=== PATIENT | female | born 1955 | race Caucasian/White ===

== ENCOUNTER 2024-07-04 11:56 | Outpatient (AMB) | payer MEDICARE, SELFPAY ==
--- NOTE | 2024-07-04 12:04 | HO.NEPHOV ---
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 She has history of liver cirrhosis with ascites and hepatic encephalopathy as well as alcoholic pancreatitis in the past. She is on amlodipine, lisinopril, hydrochlorothiazide as well as clonidine. She denies taking excessive sodium in the diet. Her serum potassium and renal function are normal. She has COPD and continues to be smoking. She has been having lower extremity swelling ever since she has been started on amlodipine. Her serum albumin has been close to normal. She denies any orthostatic symptoms. She has never been on nadalol. She claims to be compliant with medications and avoids any excessive nonsteroidal anti-inflammatories. 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 [facility] Medical History (Updated 07/04/24 @ 14:51 by Indra Robertson MD) Vitamin D deficiency Varicose vein of leg Urinary incontinence, urge Rheumatoid factor positive Portal hypertension Obesity (BMI 30-39.9) Migraine without status migrainosus, not intractable Lung nodule, multiple Insomnia Hypothyroidism Hypertension Hepatic encephalopathy Diverticulosis COPD (chronic obstructive pulmonary disease) with chronic bronchitis Cirrhosis of liver with ascites Chronic midline low back pain without sciatica Chronic cholecystitis with calculus Anxiety disorder Alcoholic pancreatitis Acid reflux Surgical History H/O wisdom tooth extraction H/O endoscopy H/O shoulder surgery H/O colonoscopy H/O section Family History Mother Colon cancer Father Hypertension Social History (Updated 07/04/24 @ 12:05 by Loren Appiah MA) Alcohol intake: former Patient Tobacco Use Status: Current everyday Tobacco user Review of Systems Const All systems reviewed & are unremarkable except as noted in HPI and below Physical Exam Vital Signs: Last Vital Signs Pulse 80 07/04/24 12:10 BP 102/68 07/04/24 12:10 Pulse Ox 97 07/04/24 12:10 Oxygen Delivery Method Room Air 07/04/24 12:10 BMI result Body Mass Index 31.5 Const General: comfortable and no acute distress Orientation/consciousness: patient oriented x3 HEENT Head: Yes normocephalic Mouth: Normal oral and palatal mucosa present Eyes EOM: EOMs intact bilaterally Neck Neck: Yes supple Resp Auscultation: clear to auscultation bilaterally Cardio Jugular venous distension: no JVD Rate: regular rate GI Palpation (GI): Soft to palpation Auscultation: normal bowel sounds Skin General skin exam: no rashes or lesions noted Neuro General: patient oriented x3 and moves all extremities Extrem General: Yes no pedal edema Results Reviewed Nephrology Results: No Data to Display Assessment & Plan Assessment & Plan (1) Hypertension: Code(s): I10 - Essential (primary) hypertension Category: Medical Qualifiers: Hypertension type: primary hypertension Qualified Code(s): I10 - Essential (primary) hypertension (2) Edema: Code(s): R60.9 - Edema, unspecified Category: Medical Qualifiers: Edema type: unspecified Qualified Code(s): R60.9 - Edema, unspecified Plan Valerie has longstanding hypertension. Her antihypertensive medication has been adjusted but continues to have high blood pressure. She has edema ever since she has been started on amlodipine. Her last serum albumin was 3.9. She is on lisinopril, hydrochlorothiazide as well as clonidine. Discontinued her amlodipine and initiated her on low-dose spironolactone given history of liver issues. She was told to check her potassium given she is already taking NANCY-inhibitor(ordered). She had a venous duplex which has ruled out DVT. I plan to cut back and wean her off clonidine if at all possible. Her renal functions are normal. She should maintain low-sodium diet and quit smoking. She has never taken Nadalol and there is no documentation to support she has high portal pressure. Further optimization of her medication regiment will be based on evolving data. Answered all questions Orders: Orders Creatinine 3 Weeks I10 - Essential (primary) hypertension Electrolytes 3 Weeks I10 - Essential (primary) hypertension Blood Urea Nitrogen 3 Weeks I10 - Essential (primary) hypertension Medications: New spironolactone 12.5 mg (1/2 x 25 mg) PO DAILY 30 days 15 tabs 3RF Coding Level of Care Code New Pt Level 4 (46803) Diagnoses Primary hypertension I10 Hypertension type: primary hypertension Edema, unspecified type R60.9 Edema type: unspecified
[2024-07-04 12:10] VITALS: BP 102/68; PULSE 80; O2SAT 97; BMI 31.5
--- OUTSIDE RECORDS SUMMARY | 2024-07-04 13:14 | XMS_ITS | Encounter Summary ---
Author Organization [facility] Address [address] [place] [address] Care Team Providers Care Leadership Development Consultant Name Role Phone Betty Burnett MD Primary Care Provider [phone] Reason for Visit * Reason Onset Date Comments Lex: Call Back 07/02/2024 Encounter Details Date Type Department Care Team ([facility] st Contact Info) Description 07/02/2024 Telephone Internal Medicine - [place] [address] [place] [address] Betty Burnett MD [address] [place] [address] Lex: Call Back Social History Tobacco Use Types Packs/Day Years Used Date Smoking Tobacco: Every Day Cigarettes 0.8 54.6 Started: 1970 Smokeless Tobacco: Never Alcohol Use Standard Drinks/Week Comments No 0 (1 standard drink = 0.6 oz pur e alcohol) Comments No Sex and Gender Information Value Date Recorded Sex Assigned at Female 05/08/2024 2:24 PM EST Legal Sex Female 10:33 PM EST Gender Identity Female 05/08/2024 2:24 PM EST Sexual Orientation Choose not to disclose 2024 2:24 PM EST documented as of this encounter Progress Notes * Sneha Oleary RN - 07/03/2024 8:46 AM EDT She could have swelling of the leg from cirrhosis of the liver or heart failure. need to follow-upwith GI and cardiology. Referral has been placed Call to pt # [phone], spoke w/ her. Informed of message from Dr. Varner She has an appt with cardiology 07/19 She will call her GI She already has her next f/u appt with us on 08/[address] Varner * Sneha Oleary RN - 07/02/2024 4:[address] Varner please advise Pt seen for this issue on 06/[address] Varner. Was DVT neg. Pt looking for next steps, is still having swelling. Patient called and requested a call back with next steps on what she should do because she went [facility] to check for blood clots but she does not and her leg is still swollen and she would like to know what to do now. * Candie Marcus - 07/02/2024 1:37 PM EDT Patient called and requested a call back with next steps on what she should do because she went to the hospital to check for blood clots but she does not and her leg is still swollen and she would like to know what to do now. Please advise Cb# [phone] documented in this encounter Plan of Treatment Upcoming Encounters Date Type Department Care Team (Late st Contact Info) Description 07/19/2024 11:00 AM EDT Ancillary Procedure [facility] - [facility] [address] [place] [address] 08/05/2024 11:15 AM EDT Office Visit Internal Medicine - [place] [address] [facility] [address] [place] [phone] Jose Varner MD 175 [facility] [address] [place] [address] 09/03/2024 12:00 PM EDT Appointment [facility] Endoscopy [address] [place] [phone] Yaron Belle MD [address] [address] 09/05/2024 12:45 PM EDT Office Visit Internal Medicine - [place] [address] [phone] Betty Burnett MD [address] [phone] documented as of this encounter Visit Diagnoses Not on filedocumented in this encounter Additional Health Concerns Assessment Noted Time PHQ-9 Depression Total Score: 2 04/24/19 25 1:10 PM EST A fall risk assessment has been complete d for the patient 04/24/2024 1:06 PM EST documented as of this encounter Care Teams Leadership Development Consultant Relationship Specialty Start Date End Date Betty Burnett MD [address] [phone] PCP - General Internal Medicine 03/25/24 documented as of this encounter
--- OUTSIDE RECORDS SUMMARY | 2024-07-04 13:14 | XMS_ITS | Encounter Summary ---
Author Organization [facility] Address [address] [place] [address] Care Team Providers Care Pharmaceutical Service Representative Name Role Phone Betty Burnett MD Primary Care Provider [phone] Reason for Referral * Imaging (Emergency) - Pending Review Specialty Diagnoses / Procedures Referred By Contac t Referred To Contact Diagnoses Leg swelling Procedures Vascular US duplex lower extremity venous left Vascular US duplex lower extremity venous left Jose Varner MD [address] [address] Phone: tel: fax: [facility] Referral ID Status Reason Start Date Expiration Date V isits Requested Visits Authorized [id number] Pending Review 06/26/2024 06/26/2025 1 1 Reason for Visit * Imaging (Emergency) - Pending Review Specialty Diagnoses / Procedures Referred By Saleem marie Referred To Contact Diagnoses Leg swelling Procedures Vascular US duplex lower extremity venous left Vascular US duplex lower extremity venous left Jose Varner MD [address] [address] Phone: tel: fax: [facility] Referral ID Status Reason Start Date Expiration Date V isits Requested Visits Authorized [id number] Pending Review 06/26/2024 06/26/2025 1 1 Encounter Details Date Type Department Care Team (Latest Contact Info) Description 07/01/2024 1:28 PM EDT - 07/01/2024 11:59 PM EDT Hospital Encounter [facility] Ultrasound [address] [place] [address] Leg swelling Discharge Disposition: Home or Self Care Social History Tobacco Use Types Packs/Day Years [...] PM EST documented as of this encounter Medications at Time of Discharge acetaminophen (TYLENOL) 500 mg tablet TAKE 1 TABLET BY MOUTH EVERY 4-6 HOURS NEEDED FOR PAIN 04/28/2022 albuterol HFA (PROAIR HFA ; PROVENTIL HFA ; VENTOLIN HFA) 90 mcg/actuation inhaler Inhale 2 puffs by mouth every 6 (six) hours if needed for wheezing. 6.7 g 1 06/26/2024 alendronate-chol ecalciferol (FOSAMAX PLUS D) 70 mg- 5,600 unit per tablet 07/11/2022 amLODIPine (NORVASC) 5 mg tablet Take 1 tablet (5 mg total) by mouth 1 (one) time each day. 90 each 3 05/01/2024 butalbital-aceta minophen-caffein e (FIORICET, ESGIC) 50-325-40 mg per tablet TAKE 1 TABLET BY MOUTH EVERY 6 HOURS NEEDED FOR PAIN 12 tablet 06/19/2024 butalbital-aspir in-caffeine (FIORINAL) 50-325-40 mg per capsule Take 1 Capsule by mouth every 6 hours as needed for Pain for up to 28 days. 11/27/2023 cloNIDine (CATAPRES) 0.2 mg tablet Take 1 tablet (0.2 mg total) by mouth 2 (two) times a day. 60 tablet 1 05/24/2024 cyanocobalamin (VITAMIN B-12) 1,000 mcg tablet TAKE 1 TABLET BY MOUTH EVERY DAY 04/18/2020 cyclobenzaprine (FLEXERIL) 5 mg tablet TAKE 1 TABLET BY MOUTH AT BEDTIME NEEDED FOR MUSCLE SPASMS. 12/01/2023 cyclobenzaprine (FLEXERIL) 5 mg tablet 03/21/2023 cyclobenzaprine (FLEXERIL) 5 mg tablet TAKE 1 TABLET (5 MG TOTAL) BY MOUTH AT BEDTIME NEEDED FOR MUSCLE SPASMS. 30 tablet 1 06/06/2024 ferrous sulfate 325 mg (65 mg iron) EC tablet TAKE 1 TABLET BY MOUTH DAILY (WITH BREAKFAST). 30 tablet 07/01/2024 FLUoxetine (PROzac) 20 mg capsule TAKE 3 CAPSULE BY MOUTH ONCE A DAY 11/10/2023 FLUoxetine (PROzac) 20 mg capsule 05/15/2023 FLUoxetine (PROzac) 20 mg capsule 05/15/2023 FLUoxetine (PROzac) 20 mg capsule Take 1 capsule (20 mg total) by mouth 1 (one) time each day. 90 capsule 2 05/30/2024 FLUoxetine (PROzac) 20 mg capsule Take 1 capsule (20 mg total) by mouth 1 (one) time each day. 90 capsule 1 06/26/2024 FLUoxetine (PROzac) 40 mg capsule 07/25/2019 fluticasone propionate (FLONASE) 50 mcg/actuation nasal spray 1 Huger by Nasal route daily. 08/06/2020 fluticasone-umec lidinium-vilante rol (Trelegy Ellipta) 100-62.5-25 mcg inhaler INHALE 1 PUFF INTO THE LUNGS DAILY. 02/20/2023 fluticasone-umec lidinium-vilante rol (Trelegy Ellipta) 200-62.5-25 mcg inhaler Inhale 1 puff (200 mcg total) by mouth 1 (one) time each day. Rinse mouth with water after use to reduce aftertaste and incidence of candidiasis. Do not swallow. 60 each 1 05/24/2024 folic acid (FOLVITE) 1 mg tablet Take 1 mg by mouth daily. folic acid (FOLVITE) 800 mcg tablet Take 1 tablet (800 mcg total) by mouth 1 (one) time each day. 30 tablet 06/19/2024 hydroCHLOROthiaz thomas 12.5 mg tablet Take 1 tablet (12.5 mg total) by mouth 1 (one) time each day. 30 each 1 06/26/2024 hydrOXYzine HCL (ATARAX) 10 mg tablet Take 1 tablet (10 mg total) by mouth 3 (three) times a day. 90 tablet 05/03/2024 hydrOXYzine HCL (ATARAX) 50 mg tablet 10/06/2021 ibuprofen (ADVIL,MOTRIN) 600 mg tablet Take 1 tablet (600 mg total) by mouth 3 (three) times a day if needed for mild pain (pain). 40 tablet 05/01/2024 levothyroxine (SYNTHROID, LEVOTHROID) 25 mcg tablet TAKE 1 & 1/2 TABLETS BY MOUTH EVERY DAY 45 tablet 2 05/06/2024 lisinopril (PRINIVIL,ZESTRI L) 40 mg tablet Take 1 tablet (40 mg total) by mouth 1 (one) time each day. 30 tablet 5 03/26/2024 loperamide (IMODIUM) 2 mg capsule TAKE 1 CAPSULE BY MOUTH 3 TIMES DAILY NEEDED FOR DIARRHEA. 10/16/2023 magnesium oxide (MAG-OX) 400 mg (241.3 elemental magnesium) tablet 01/19/2024 mirtazapine (REMERON) 7.5 mg tablet TAKE 1 TABLET BY MOUTH AT BEDTIME 30 tablet 2 04/10/2024 nicotine (NICODERM CQ) 14 mg/[address] 1 Patch onto the skin every 24 hours for 30 days. 05/18/2023 oxyBUTYnin XL (Ditropan XL) 5 mg 24 hr tablet Take 1 tablet (5 mg total) by mouth 1 (one) time each day. Do not crush, chew, or split. 90 each 3 04/24/2024 polyethylene glycol (GoLYTELY) 236-22.74-6.74 -5.86 gram solution Take 240 mL by mouth once for 1 dose. May substitue for any PEG. Follow instructions given by office. 05/31/2023 predniSONE (DELTASONE) 20 mg tablet 3 tab for 3 days,2 tab for 3 days,1 tab for 3 days 10/23/2023 thiamine 100 mg tablet TAKE 1 TABLET BY MOUTH DAILY. 30 tablet 1 05/20/2024 documented as of this encounter Discharge Disposition Disposition Code Departure Means Destination Home or Self Care documented in this encounter Plan of Treatment Upcoming Encounters Date Type Department Care Team (Late st Contact Info) Description 07/19/2024 11:00 AM EDT Ancillary Procedure [facility] - [address] [place] [address] 08/05/2024 11:15 AM EDT Office Visit Internal Medicine - [place] [address] [facility] [address] [place] [phone] Jose Varner MD [address] [address] 09/03/2024 12:00 PM EDT Appointment [facility] Endoscopy [address] [place] [phone] Yaron Belle MD [address] [address] 09/05/2024 12:45 PM EDT Office Visit Internal Medicine [facility] 175 [facility] [address] [place] [phone] Betty Burnett MD [address] [phone] documented as of this encounter Procedures Procedure Name Priority Date/Time Associated Diagnosis Comments VAS US DUPLEX LOWER EXT VENOUS LEFT STAT 07/01/2024 1:50 PM EDT Leg swelling documented in this encounter Results * Vascular US duplex lower extremity venous left (07/01/2024 1:50 PM EDT) Anatomical Region Laterality Modality Vascular, Abdomen Ultrasound 07/01/2024 2:02 PM EDT Impressions 07/01/2024 2:03 PM EDT NO LEFT LOWER EXTREMITY DEEP VENOUS THROMBOSIS. -------- FINAL REPORT -------- Dictated By: Lois Bowie Dictated Date: 07/01/2024 14:02 ET Assigned Physician: Lois Bowie Reviewed and Electronically Signed By: Lois Bowie Signed Date: 07/01/2024 14:03 ET Workstation ID: [id number] Transcribed By: Self Edit Transcribed Date: 07/01/2024 14:02 ET Narrative 07/01/2024 2:03 PM EDT Ultrasound venous duplex left lower extremity INDICATION: edema TECHNIQUE: 2-D and color Doppler imaging of the left lower extremity venous vasculature with compression and augmentation maneuvers. COMPARISON: No priors available. FINDINGS: There is normal flow, compression, and augmentation from the common femoral through the popliteal vein. No focal fluid collection. Procedure Note Lois Bowie MD - 07/01/2024 Ultrasound venous duplex left lower extremity INDICATION: edema TECHNIQUE: 2-D and color Doppler imaging of the left lower extremityvenous vasculature with compression and augmentation maneuvers. COMPARISON: No priors available. FINDINGS: There is normal flow, compression, and augmentation from the commonfemoral through the popliteal vein. No focal fluid collection. IMPRESSION: NO LEFT LOWER EXTREMITY DEEP VENOUS THROMBOSIS. -------- FINAL REPORT -------- Dictated By: Lois Bowie Dictated Date: 07/01/2024 14:02 ET Assigned Physician: Lois Bowie Reviewed and Electronically Signed By: Lois Bowie Signed Date: 07/01/2024 14:03 ET Workstation ID: [id number] Transcribed By: Self Edit Transcribed Date: 07/01/2024 14:02 ET us Jose Varner MD CV VASCULAR PROCEDURES Final Res ult documented in this encounter Visit Diagnoses Diagnosis Leg swelling Swelling of limb documented in this encounter Additional Health Concerns Assessment Noted Time PHQ-9 Depression Total Score: 2 04/24/19 25 1:10 PM EST A fall risk assessment has been complete d for the patient 04/24/2024 1:06 PM EST documented as of this encounter Care Teams Pharmaceutical Service Representative Relationship Specialty Start Date End Date Betty Burnett MD [address] [place] [phone] PCP - General Internal Medicine 03/25/24 documented as of this encounter
--- OUTSIDE RECORDS SUMMARY | 2024-07-04 13:14 | XMS_ITS | Encounter Summary ---
Author Organization [facility] Address [address] [place] [address] Care Team Providers Care Demolition Worker Name Role Phone Betty Burnett MD Primary Care Provider Encounter Details Date Type Department Care Team (Late st Contact Info) Description 05/29/2024 Telephone Internal Medicine - [place] [address] [facility] [address] [place] [address] Betty Burnett MD [address] [facility] [address] [place] [address] Social History Tobacco Use Types Packs/Day Years Used Date Smoking Tobacco: Every Day Cigarettes 0.8 54.6 Started: 1970 Smokeless Tobacco: Never Alcohol Use Standard Drinks/Week Comments No 0 (1 standard drink = 0.6 oz pur e alcohol) Comments Unknown Sex and Gender Information Value Date Recorded Sex Assigned at Female 05/08/2024 2:24 PM EST Legal Sex Female 10:33 PM EST Gender Identity Female 05/08/2024 2:24 PM EST Sexual Orientation Choose not to disclose 2024 2:24 PM EST documented as of this encounter Progress Notes * Nitesh Aaron MA - 05/30/2024 9:42 AM EST Called pt no answer left vm with details. * Betty Burnett MD - 05/29/2024 8:50 PM EST 5 mg daily * Juan iVllalobos MA - 05/29/2024 1:08 PM EST Please advise. * Mary Jo Bonilla - 05/29/2024 12:47 PM EST AUTHORIZED TO LEAVE DETAILED MESSAGE. Pt has 2 scripts of the amlodipine 2.5mg and 5mg, both say to take 1 tablet each day, which one does she take? [phone] documented in this encounter Plan of Treatment Upcoming Encounters Date Type Department Care Team (Late st Contact Info) Description 07/19/2024 11:00 AM EDT Ancillary Procedure [facility] - [facility] [address] [phone] 08/05/2024 11:15 AM EDT Office Visit Internal Medicine - [place] [address] [phone] Jose Varner MD [address] [address] 09/03/2024 12:00 PM EDT Appointment [facility] Endoscopy [address] [place] [phone] Yaron Belle MD [address] [address] 09/05/2024 12:45 PM EDT Office Visit Internal Medicine - [place] [address] [phone] Betty Burnett MD [address] [phone] documented as of this encounter Visit Diagnoses Not on filedocumented in this encounter Additional Health Concerns Assessment Noted Time PHQ-9 Depression Total Score: 2 04/24/19 25 1:10 PM EST A fall risk assessment has been complete d for the patient 04/24/2024 1:06 PM EST documented as of this encounter Care Teams Demolition Worker Relationship Specialty Start Date End Date Betty Burnett MD [address] [phone] PCP - General Internal Medicine 03/25/24 documented as of this encounter
--- OUTSIDE RECORDS SUMMARY | 2024-07-04 13:14 | XMS_ITS | Clinical Summary ---
Author Organization [facility] Address [address] [place] [address] Phone Care Team Providers Care Capacity Manager Name Role Phone Betty Burnett MD Primary Care Provider [phone] Allergies No known active allergies Medications magnesium oxide (MAG-OX) 400 mg (241.3 elemental magnesium) tablet 01/19/20 24 Active cyclobenzapri ne (FLEXERIL) 5 mg tablet TAKE 1 TABLET BY MOUTH AT BEDTIME NEEDED FOR MUSCLE SPASMS. 12/01/19 24 Active butalbital-as pirin-caffein e (FIORINAL) 50-325-40 mg per capsule Take 1 Capsule by mouth every 6 hours as needed for Pain for up to 28 days. 11/27/19 24 Active FLUoxetine (PROzac) 20 mg capsule TAKE 3 CAPSULE BY MOUTH ONCE A DAY 11/10/19 24 Active predniSONE (DELTASONE) 20 mg tablet 3 tab for 3 days,2 tab for 3 days,1 tab for 3 days 10/23/19 24 Active loperamide (IMODIUM) 2 mg capsule TAKE 1 CAPSULE BY MOUTH 3 TIMES DAILY NEEDED FOR DIARRHEA. 10/16/19 24 Active polyethylene glycol (GoLYTELY) 236-22.74-6.7 4 -5.86 gram solution Take 240 mL by mouth once for 1 dose. May substitue for any PEG. Follow instructions given by office. 05/31/19 24 Active nicotine (NICODERM CQ) 14 mg/[address] 1 Patch onto the skin every 24 hours for 30 days. 05/18/19 24 Active FLUoxetine (PROzac) 20 mg capsule 05/15/19 24 Active FLUoxetine (PROzac) 20 mg capsule 05/15/19 24 Active cyclobenzapri ne (FLEXERIL) 5 mg tablet 03/21/20 23 Active fluticasone-u meclidinium-v ilanterol (Trelegy Ellipta) 100-62.5-25 mcg inhaler INHALE 1 PUFF INTO THE LUNGS DAILY. 02/21/20 23 Active alendronate-c holecalcifero l (FOSAMAX PLUS D) 70 mg- 5,600 unit per tablet 07/12/19 23 Active acetaminophen (TYLENOL) 500 mg tablet TAKE 1 TABLET BY MOUTH EVERY 4-6 HOURS NEEDED FOR PAIN 04/28/19 23 Active hydrOXYzine HCL (ATARAX) 50 mg tablet 10/07/19 22 Active folic acid (FOLVITE) 1 mg tablet Take 1 mg by mouth daily. Active fluticasone propionate (FLONASE) 50 mcg/actuation nasal spray 1 [place] by Nasal route daily. 08/07/19 21 Active cyanocobalami n (VITAMIN B-12) 1,000 mcg tablet TAKE 1 TABLET BY MOUTH EVERY DAY 04/18/19 21 Active FLUoxetine (PROzac) 40 mg capsule 07/25/19 Active lisinopril (PRINIVIL,ZES TRIL) 40 mg tablet Take 1 tablet (40 mg total) by mouth 1 (one) time each day. 30 tablet 5 03/26/20 24 Active mirtazapine (REMERON) 7.5 mg tablet TAKE 1 TABLET BY MOUTH AT BEDTIME 30 tablet 2 04/10/19 25 Active oxyBUTYnin XL (Ditropan XL) 5 mg 24 hr tablet Take 1 tablet (5 mg total) by mouth 1 (one) time each day. Do not crush, chew, or split. 90 each 04/24/19 25 Active Additional Information Patient not taking.Reported on 06/26/2024 ibuprofen (ADVIL,MOTRIN ) 600 mg tablet Take 1 tablet (600 mg total) by mouth 3 (three) times a day if needed for mild pain (pain). 40 tablet 05/01/19 25 Active amLODIPine (NORVASC) 5 mg tablet Take 1 tablet (5 mg total) by mouth 1 (one) time each day. 90 each 05/01/19 25 Active hydrOXYzine HCL (ATARAX) 10 mg tablet Take 1 tablet (10 mg total) by mouth 3 (three) times a day. 90 tablet 05/03/19 25 Active levothyroxine (SYNTHROID, LEVOTHROID) 25 mcg tablet TAKE 1 & 1/2 TABLETS BY MOUTH EVERY DAY 45 tablet 2 05/06/19 25 Active thiamine 100 mg tablet TAKE 1 TABLET BY MOUTH DAILY. 30 tablet 1 05/20/19 25 Active cloNIDine (CATAPRES) 0.2 mg tablet Take 1 tablet (0.2 mg total) by mouth 2 (two) times a day. 60 tablet 1 05/24/19 25 Active fluticasone-u meclidinium-v ilanterol (Trelegy Ellipta) 200-62.5-25 mcg inhaler Inhale 1 puff (200 mcg total) by mouth 1 (one) time each day. Rinse mouth with water after use to reduce aftertaste and incidence of candidiasis. Do not swallow. 60 each 1 05/24/19 25 Active FLUoxetine (PROzac) 20 mg capsule Take 1 capsule (20 mg total) by mouth 1 (one) time each day. 90 capsule 2 05/30/19 25 Active cyclobenzapri ne (FLEXERIL) 5 mg tablet TAKE 1 TABLET (5 MG TOTAL) BY MOUTH AT BEDTIME NEEDED FOR MUSCLE SPASMS. 30 tablet 1 06/07/19 25 Active butalbital-ac etaminophen-c affeine (FIORICET, ESGIC) 50-325-40 mg per tablet TAKE 1 TABLET BY MOUTH EVERY 6 HOURS NEEDED FOR PAIN 12 tablet 06/20/19 25 Active folic acid (FOLVITE) 800 mcg tablet Take 1 tablet (800 mcg total) by mouth 1 (one) time each day. 30 tablet 06/20/19 25 Active albuterol HFA (PROAIR HFA ; PROVENTIL HFA ; VENTOLIN HFA) 90 mcg/actuation inhaler Inhale 2 puffs by mouth every 6 (six) hours if needed for wheezing. 6.7 g 1 06/27/19 25 Active hydroCHLOROth iazide 12.5 mg tablet Take 1 tablet (12.5 mg total) by mouth 1 (one) time each day. 30 each 1 06/27/19 25 025 Active FLUoxetine (PROzac) 20 mg capsule Take 1 capsule (20 mg total) by mouth 1 (one) time each day. 90 capsule 1 06/27/19 25 Active ferrous sulfate 325 mg (65 mg iron) EC tablet TAKE 1 TABLET BY MOUTH DAILY (WITH BREAKFAST). 30 tablet 07/02/19 25 Active ferrous sulfate 325 mg (65 mg iron) EC tablet TAKE 1 TABLET BY MOUTH DAILY (WITH BREAKFAST). 10/26/19 24 025 Discontinued albuterol HFA (PROAIR HFA ; PROVENTIL HFA ; VENTOLIN HFA) 90 mcg/actuation inhaler Inhale 2 Puffs into the lungs every 6 hours as needed for Cough or Wheezing for up to 30 days. 07/20/19 025 Discontinued(R eorder) butalbital-ac etaminophen-c affeine (FIORICET, ESGIC) 50-325-40 mg per tablet TAKE 1 TABLET BY MOUTH EVERY 6 HOURS NEEDED FOR PAIN 12 tablet 1 04/27/19 25 025 Discontinued cyclobenzapri ne (FLEXERIL) 5 mg tablet Take 1 tablet (5 mg total) by mouth at bedtime as needed for muscle spasms. 30 tablet 04/24/19 25 025 Discontinued folic acid (FOLVITE) 800 mcg tablet TAKE 1 TABLET BY MOUTH DAILY. 30 tablet 05/21/19 025 Discontinued Active Problems Problem Noted Date Diagnosed Date Diverticulosis 02/27/2024 HTN (hypertension) 02/27/2024 Assessment & Plan (04/25/2024 11:32 PM EST): Orders: Thyroid stimulating hormone with reflex to free t4 and free t3; Future Comprehensive metabolic panel; Future CBC and differential; Future Chronic midline low back pain without sciatica 0 09/01/2022 Migraine without status migrainosus, not intract able 10/26/2021 Obesity (BMI 30-39.9) 08/06/2021 COPD (chronic obstructive pu lmonary disease) with chronic bronchitis 12/21/2018 Hepatic encephalopathy 12/20/2018 Chronic cholecystitis with calculus 07/18/2018 Hypothyroidism 02/27/2018 Assessment & Plan (04/25/2024 11:32 PM EST): Orders: Thyroid stimulating hormone with reflex to free t4 and free t3; Future Comprehensive metabolic panel; Future CBC and differential; Future Vitamin D deficiency 09/17/2016 Insomnia 09/16/2016 Varicose vein of leg 07/08/2016 Rheumatoid factor positive 06/24/2015 Lung nodule, multiple 05/29/2015 Overview (02/27/2024): Smoker, will need repeat CT due in 05/2016 Cirrhosis of liver with ascites 04/14/2015 Overview (02/27/2024): Onset 2016. Assessment & Plan (04/25/2024 11:32 PM EST): Orders: Thyroid stimulating hormone with reflex to free t4 and free t3; Future Comprehensive metabolic panel; Future CBC and differential; Future Alcoholic pancreatitis 12/23/2014 Portal hypertension 12/23/2014 Acid reflux 07/29/2013 Anxiety disorder 07/29/2013 Overview (02/27/2024): Last Assessment & Plan: I encouraged her to call PCP office and explain she is on waiting list for MH provider and needs meds in meantime. She contracted for safety. Urinary incontinence, urge 07/29/2013 Encounters Date Type Department Care Team Description 07/04/2024 Telephone Internal Medicine [facility] [address] [phone] Betty Burnett MD 07/02/2024 Telephone Internal Medicine [facility] [address] [phone] Betty Burnett MD [place]: Call Back 07/01/2024 1:28 PM EDT - 07/01/2024 11:59 PM EDT Hospital Encounter [facility] Ultrasound [address] [place] [phone] Leg swelling Discharge Disposition: Home or Self Care 06/26/2024 10:00 AM EDT Office Visit Internal Medicine [facility] [address] [phone] Jose Varner MD Leg swelling (Primary Dx); Primary hypertension; [place] eye disease of left eye 06/25/2024 Telephone Internal Medicine [facility] [address] [phone] Betty Burnett MD Conjunctivitis 06/10/2024 11:11 AM EDT - 06/10/2024 11:59 PM EDT Hospital Encounter [facility] [address] [place] [address] Breast cancer screening by mammogram Discharge Disposition: Home or Self Care 05/29/2024 Telephone Internal Medicine - [place] [address] [phone] Betty Burnett MD 05/01/2024 12:00 PM EST Consult Internal Medicine [facility] [address] [phone] Betty Burnett MD Preop examination (Primary Dx); Chronic midline low back pain without sciatica; COPD (chronic obstructive pulmonary disease) with chronic bronchitis (CMS/HCC); Shortness of breath; RBBB 04/30/2024 Telephone Internal Medicine [facility] [address] [phone] Betty Burnett MD Pre-op Visit (Needed before 05/15 cataract surgery ) 04/29/2024 Telephone Internal Medicine [facility] [address] [phone] Betty Burnett MD Pre-op Exam 04/24/2024 1:00 PM EST Office Visit Internal Medicine [address] [phone] Betty Burnett MD Urinary incontinence, unspecified type (Primary Dx); Alcoholic cirrhosis of liver with ascites (CMS/HCC); Hypothyroidism, unspecified type; Primary hypertension; Breast cancer screening by mammogram; Screening for colorectal cancer; Encounter for subsequent annual wellness visit (AWV) in Medicare patient 04/23/2024 Telephone Internal Medicine [address] [phone] Betty Burnett MD from Last 3 Months Immunizations Name Administration Dates Next Due Influenza Quadravalent, MDCK , 0.5ml, preservative free (Flucelvax) 6mo and older 01/03/2019 Influenza Quadravalent, MDCK , 0.5ml, with preservative (Flucelvax) 6mo and older 01/18/2017 Influenza trivalent, 0.5mL ( Fluad) 65yo and older 12/08/2019 Influenza trivalent, 0.5mL, preservative free (Fluarix; FluLaval; Fluzone) ages 6mo and older (Afluria) 3 years and older 12/17/2017,01/19/2016,12/23/2014,03/17,01/30/2010 Influenza, Unspecified 12/11/2017 Pneumococcal polysaccharide 23 valent (Pneumovax 23) 2yo and older 09/10/2015 Tdap Tetanus diptheria acell ular pertussis (Boostrix; Adacel) 7yo and older 07/29/2013 Surgical History Surgery Date Site/Laterality Comments SHOULDER SURGERY PROCEDURE: HISTORICAL SHOULDER SURGERY SECTION PROCEDURE: HISTORICAL DELIVERY; COMMENT: x2 WISDOM TOOTH EXTRACTION PROCEDURE: HISTORICAL WISDOM TEETH EXTRACTION COLONOSCOPY 10/19/2005 PROCEDURE: HISTORICAL COLONOSCOPY; COMMENT: Negative UPPER GASTROINTESTINAL ENDOSCOPY 04/30/2015 PROCEDURE: [place] UPPER GI ENDOSCOPY PERFORMED; COMMENT: [facility]; small varices, minimal chemical gastritis, no H. pylori. COLONOSCOPY 05/26/2017 PROCEDURE: HISTORICAL COLONOSCOPY; COMMENT: [facility]; 8 mm serrated adenoma transverse colon. Diverticulosis. UPPER GASTROINTESTINAL ENDOSCOPY 2018 PROCEDURE: [place] UPPER GI ENDOSCOPY PERFORMED; COMMENT: erosive gastritis, minimal esophageal varices, Path: Mild reactive gastropathy, no H. pylori infection. OTHER SURGICAL HISTORY PROCEDURE: PUNCTURE/DRAIN PERITONEAL CAVITY; COMMENT: March 2019 Medical History Medical History Date Comments HTN (hypertension) DX:HTN (hyper tension) Depression DX:Depression Anxiety DX:Anxiety Hepatitis C DX:Hepatitis C; COMMENT: diagnosed 10 yrs Cirrhosis of liver with asci fermin (CMS/HCC) 04/14/2015 DX:Cirrhosis of liver with a scites (HCC); COMMENT: Onset 2015. Rheumatoid factor positive 06/24/2015 DX:Rh eumatoid factor positive History of hepatitis C 06/27/2014 DX:Histor y of hepatitis C; COMMENT: Genotype 1A. Chronic Hepatitis C. Tx Started 08/28/15 Viekira Juan for 12 weeks. Completed 2 months of rx and then meds were discarded by roommate. HCV neg 01/15/2016 = ETR. HCV neg 05/13/2016 = SVR. Alcohol use DX:Alcohol use History of ascites DX:History of ascites; COMMENT: Last paracentesis in 03/2019 Diverticulosis DX:Diverticulosi s Esophageal reflux DX:Esophageal reflux Elevated LFTs DX:Elevated LFTs Cirrhosis of liver (CMS/HCC) DX: Cirrhosis of liver (HCC) Insomnia DX:Insomnia COPD (chronic obstructive pu lmonary disease) (CMS/HCC) DX:COPD (chronic obstructive pulmonary disease) (HCC) Pulmonary emphysema (CMS/HCC) DX :Pulmonary emphysema (HCC) Family History Medical History Relation Name Comments Colon cancer Mother Breast cancer Neg Hx Ovarian cancer Neg Hx Uterine cancer Neg Hx Relation Name Status Comments Father (Age 89) Mother (Age 95) Social History Tobacco Use Types Packs/Day Years Used Date Smoking Tobacco: Every Day Cigarettes 0.8 54.6 Started: 1970 Smokeless Tobacco: Never Tobacco Cessation:Ready to Q uit: Not Asked; Counseling Given: Not Answered Alcohol Use Standard Drinks/Week Comments No 0 (1 standard drink = 0.6 oz pur e alcohol) Comments No Sex and Gender Information Value Date Recorded Sex Assigned at Female 05/08/2024 2:24 PM EST Legal Sex Female 10:33 PM EST Gender Identity Female 05/08/2024 2:24 PM EST Sexual Orientation Choose not to disclose 2024 2:24 PM EST Obstetrics History Para Term AB IAB SAB Ectopic Multiple Livin g Live Births 2 Last Filed Vital Signs Vital Sign Reading Time Taken Comments Blood Pressure 150/100 06/26/2024 10:40 AM EDT Pulse 58 06/26/2024 10:40 AM EDT Temperature 36.9 ??C (98.4 ??F) 06/26/2024 10:40 AM E DT Respiratory Rate - - Oxygen Saturation 97% 06/26/2024 10:40 AM EDT Inhaled Oxygen Concentration - - Weight 81.3 kg (179 lb 3.2 oz) 06/26/2024 10:40 AM EDT Height 162.6 cm (5' 4 ) 06/10/2024 11:17 AM EDT Body Mass Index 30.76 06/10/2024 11:17 AM EDT Plan of Treatment Upcoming Encounters Date Type Department Care Team (Late st Contact Info) Description 07/19/2024 11:00 AM EDT Ancillary Procedure [facility] [address] [facility] [address] [place] [phone] 08/05/2024 11:15 AM EDT Office Visit Internal Medicine - [place] [address] [phone] Jose Varner MD [address] [address] 09/03/2024 12:00 PM EDT Appointment [facility] Endoscopy [address] [place] [phone] Yaron Belle MD [address] [address] 09/05/2024 12:45 PM EDT Office Visit Internal Medicine - [place] [address] [phone] Betty Burnett MD [address] [phone] Health Maintenance Due Date Last Done Comments Hepatitis A Vaccines (1 of 2 - Risk 2-dose series) 1973 Zoster Vaccines (1 of 2) 2004 Hepatitis B Vaccines (1 of 3 - Risk 3-dose series) 2014 RSV Immunization Adult Patients (1 - Risk 60-74 years 1-dose series) 2014 Pneumococcal Vaccine: 50+ Years (2 of 2 - PCV) 09/09/2016 09/10/2015, 05/04/2008 Osteoporosis Screening (Bone Density Screening) 03/12/2022 Social Influencers of Health Screening 03/12/2022 Colorectal Cancer Screening: Colonoscopy 05/26/2022 05/26/2017 Lung Cancer Screening (Low Dose CT) 04/10/2024 04/10/2023, 06/08/2020 Depression Screening 04/24/2025 04/24/2024, 05/18/19 24 Falls Risk Assessment 04/24/2025 04/24/2024, 024 Medicare Annual Wellness Visit 04/24/2025 04/24/2024 Hypertension/CHF/CAD Annual BMP Blood Test 05/01/2025 05/01/2024, 10/23/2023, 10/23/2023 Breast Cancer Screening 06/10/2026 06/10/2024, 03/13 Cholesterol Screening (Lipid Panel) 10/26/2026 10/26/2021 DTaP,Tdap,and Td Vaccines (4 - Td or Tdap) 01/13/2031 01/13/2021, 07/29/2013, 10/02/2003 Hepatitis C Screening Completed 04/19/2023 COVID-19 Vaccine Completed 01/17/2024, , 07/22/2021, Additional history exists Influenza Vaccine Completed 01/17/2024, , 03/10/2022, Additional history exists HIB Vaccines Aged Out No longer eligi ble based on patient's age to complete this topic HPV Vaccines Aged Out No longer eligi ble based on patient's age to complete this topic IPV Vaccines Aged Out No longer eligi ble based on patient's age to complete this topic MMR Vaccines Aged Out No longer eligi ble based on patient's age to complete this topic Meningococcal ACWY Vaccine Aged Out N o longer eligible based on patient's age to complete this topic Meningococcal B Vacine Aged Out No lo nger eligible based on patient's age to complete this topic RSV Immunization Patients Under 20 months Aged Out No longer eligible based on patient's age to complete this topic Varicella Vaccines Aged Out No longer eligible based on patient's age to complete this topic Procedures Procedure Name Priority Date/Time Associated Diagnosis Comments VAS US DUPLEX LOWER EXT VENOUS LEFT STAT 07/01/2024 1:50 PM EDT Leg swelling MG MAMMO DIGITAL SCREENING W SP BILAT Routine 06/10/2024 11:23 AM EDT Breast cancer screening by mammogram ECG INTERPRETATION AND REPORT ONLY Routine 05/01/2024 1:32 PM EST COPD (chronic obstructive pulmonary disease) with chronic bronchitis (CMS/HCC) Shortness of breath RBBB CBC WITH AUTO DIFFERENTIAL Routine 05/01/2024 1:00 PM EST Alcoholic cirrhosis of liver with ascites (CMS/HCC) Hypothyroidism, unspecified type Primary hypertension CBC AND DIFFERENTIAL Routine 05/01/2024 1:00 PM EST Alcoholic cirrhosis of liver with ascites (CMS/HCC) Hypothyroidism, unspecified type Primary hypertension COMPREHENSIVE METABOLIC PANEL Routine 05/01/2024 1:00 PM EST Alcoholic cirrhosis of liver with ascites (CMS/HCC) Hypothyroidism, unspecified type Primary hypertension THYROID STIMULATING HORMONE WITH REFLEX TO FREE T4 AND FREE T3 Routine 05/01/2024 1:00 PM EST Alcoholic cirrhosis of liver with ascites (CMS/HCC) Hypothyroidism, unspecified type Primary hypertension ECG Routine 05/01/2024 12:32 PM EST HM FALLS RISK ASSESSMENT Routine 10/23/2023 DEPRESSION SCREENING Routine 05/18/2023 HEPATITIS C SCREENING Routine 04/19/2023 CT LUNG SCREENING LOW DOSE Routine 04/10/2023 9:19 AM EST Encounter for screening for malignant neoplasm of respiratory organs LIPID PANEL Routine 10/26/2021 COLONOSCOPY Routine 05/26/2017 from Last 3 Months or Most Recently Relevant to Health Maintenance Results * Vascular US duplex lower extremity [...] Signed Date: 07/01/2024 14:03 ET Workstation ID: [id number] Transcribed By: Self Edit Transcribed Date: 07/01/2024 [...] Signed Date: 07/01/2024 14:03 ET Workstation ID: [id number] Transcribed By: Self Edit Transcribed Date: 07/01/2024 14:02 ET us Jose Varner MD CV VASCULAR PROCEDURES Final Res ult * MG Mammo Digital Screening w Sp bilat (06/10/2024 11:23 AM EDT) Anatomical Region Laterality Modality Breast Bilateral Mammography 06/10/2024 1:28 PM EDT Impressions 06/10/2024 1:35 PM EDT No mammographic evidence of malignancy. ?? No suspicious interval change. A negative mammogram in the presence of a clinically suspicious palpable abnormality does not preclude the possibility of malignancy or alter the indications for biopsy. ASSESSMENT: ?? BI-RADS 1: NEGATIVE RECOMMENDATION(S): 1: Routine screening mammogram BILATERAL in 1 year. [facility] [address], [address] -------- FINAL REPORT -------- Dictated By: Abhay Rivas Dictated Date: 06/10/2024 13:28 ET Assigned Physician: Abhay Rivas Reviewed and Electronically Signed By: Abhay Rivas Signed Date: 06/10/2024 13:35 ET Workstation ID: [id number] Transcribed By: Self Edit Transcribed Date: 06/10/2024 13:28 ET Narrative 06/10/2024 1:35 PM EDT EXAM: ??SCREENING MAMMOGRAPHY, BILATERAL HISTORY: ??SCREENING. ??No additional history. COMPARISON: ??03/13/2019, 12/14/2012 TECHNIQUE: Synthesized CC and MLO projections of each breast. ??Tomosynthesis of each breast in the CC and MLO projections. ADDITIONAL IMAGING: None Computer-aided detection was employed with the iCAD ??ProFound AI 3-D. TISSUE DENSITY: There are scattered areas of fibroglandular density. (BI-RADS category B) FINDINGS: RIGHT BREAST: No suspicious mass. No suspicious calcification. No distortion. ?? No additional suspicious right breast findings LEFT BREAST: No suspicious mass. No suspicious calcification. No distortion. ?? No additional suspicious left breast findings Procedure Note Abhay Rivas MD - 06/10/2024 EXAM: SCREENING MAMMOGRAPHY, BILATERAL HISTORY: SCREENING. No additional history. COMPARISON: 03/13/2019, 12/14/2012 TECHNIQUE: Synthesized CC and MLO projections of each breast.Tomosynthesis of each breast in the CC and MLO projections. ADDITIONAL IMAGING: None Computer-aided detection was employed with the iCAD ProFound AI 3-D. TISSUE DENSITY: There are scattered areas of fibroglandular density.(BI-RADS category B) FINDINGS: RIGHT BREAST: No suspicious mass. No suspicious calcification. No distortion. Noadditional suspicious right breast findings LEFT BREAST: No suspicious mass. No suspicious calcification. No distortion. Noadditional suspicious left breast findings IMPRESSION: No mammographic evidence of malignancy. No suspicious interval change. A negative mammogram in the presence of a clinically suspicious palpableabnormality does not preclude the possibility of malignancy or alter theindications for biopsy. ASSESSMENT: BI-RADS 1: NEGATIVE RECOMMENDATION(S): 1: Routine screening mammogram BILATERAL in 1 year. [facility] location: [facility] [address] [place], [address] -------- FINAL REPORT -------- Dictated By: Abhay Rivas Dictated Date: 06/10/2024 13:28 ET Assigned Physician: Abhay Rivas Reviewed and Electronically Signed By: Abhay Rivas Signed Date: 06/10/2024 13:35 ET Workstation ID: [id number] Transcribed By: Self Edit Transcribed Date: 06/10/2024 13:28 ET Betty Burnett MD IMG BI PROCEDURES Final Result * ECG Interpretation and Report Only (05/01/2024 1:32 PM EST) Narrative Betty Burnett MD - 05/01/2024 1:32 PM EST Normal sinus rhythm, RBBB Betty Burnett MD ECG ORDERABLES Final Result * Thyroid stimulating hormone with reflex to free t4 and free t3 (05/01/2024 1:00 PM EST) Pathologist [facility] TSH 1.16 0.40 - 4.00 mcIU/mL LAB CHEMISTRY METHOD 05/01/2024 6:[address] [facility] Blood Venous blood specimen / Unknown Venipuncture / Unknown 05/01/2024 1:00 PM EST 05/01/2024 1:00 PM EST Betty Burnett MD LAB BLOOD ORDERABLES Final Res ult [facility] [address] [place] [address], [place] [phone] * (ABNORMAL) CBC auto differential (05/01/2024 1:00 PM EST) Pathologist [facility] WBC 7.4 4.8 - 10.8 K/mcL LAB HEMETOLOGY METHOD 05/01/2024 6:22 PM [facility] RBC 3.90 3.80 - 4.80 M/mcL LAB HEMETOLOGY METHOD 05/01/2024 6:22 PM [facility] Hemoglobin 12.1 11.5 - 16.0 g/dL LAB HEMETOLOGY METHOD 05/01/2024 6:22 PM [facility] Hematocrit 37.7 35.0 - 47.0 % LAB HEMETOLOGY METHOD 05/01/2024 6:22 PM [facility] MCV 97.7 79.0 - 98.0 FL LAB HEMETOLOGY METHOD 05/01/2024 6:22 PM [facility] MCH 31.3 27.0 - 32.0 pcg LAB HEMETOLOGY METHOD 05/01/2024 6:22 PM [facility] MCHC 32.1 32.0 - 37.0 g/dL LAB HEMETOLOGY METHOD 05/01/2024 6:22 PM [facility] RDW 14.6 11.0 - 15.0 % LAB HEMETOLOGY METHOD 05/01/2024 6:22 PM [facility] Platelets 275 130 - 400 K/mcL LAB HEMETOLOGY METHOD 05/01/2024 6:22 PM [facility] MPV 9.6 7.0 - 11.0 FL LAB HEMETOLOGY METHOD 05/01/2024 6:22 PM [facility] NRBC 0.0 <1.0 % LAB HEMETOLOGY METHOD 05/01/2024 6:22 PM [facility] NRBC Absolute 0.00 <0.10 K/mcL LAB HEMETOLOGY METHOD 05/01/2024 6:22 PM [facility] Neutrophils Relative 81.5 % LAB HEMETOLOGY METHOD 05/01/2024 6:22 PM [facility] Lymphocytes Relative 12.7 % LAB HEMETOLOGY METHOD 05/01/2024 6:22 PM [facility] Monocytes Relative 4.3 % LAB HEMETOLOGY METHOD 05/01/2024 6:22 PM [facility] Eosinophils Relative 0.3 % LAB HEMETOLOGY METHOD 05/01/2024 6:22 PM [facility] Basophils Relative 0.7 % LAB HEMETOLOGY METHOD 05/01/2024 6:22 PM [facility] Immature Granulocytes Relative 0.5 % LAB HEMETOLOGY METHOD 05/01/2024 6:22 PM [facility] Neutrophils Absolute 6.03 1.50 - 7.00 K/mcL LAB HEMETOLOGY METHOD 05/01/2024 6:22 PM [facility] Lymphocytes Absolute 0.94(L) 1.00 - 5.00 K/mcL LAB HEMETOLOGY METHOD 05/01/2024 6:22 PM [facility] Monocytes Absolute 0.32 0.20 - 1.00 K/mcL LAB HEMETOLOGY METHOD 05/01/2024 6:22 PM [facility] Eosinophils Absolute 0.02 0.00 - 0.50 K/mcL LAB HEMETOLOGY METHOD 05/01/2024 6:22 PM [facility] Basophils Absolute 0.05 0.00 - 0.20 K/mcL LAB HEMETOLOGY METHOD 05/01/2024 6:22 PM [facility] Immature Granulocytes Absolute 0.04(H) 0.00 - 0.03 K/mcL LAB HEMETOLOGY METHOD 05/01/2024 6:22 PM [facility] Blood Venous blood specimen / Unknown Venipuncture / Unknown 05/01/2024 1:00 PM EST 05/01/2024 1:00 PM EST us Betty Burnett MD LAB BLOOD ORDERABLES Final Res ult [facility] [address] [place] [address], [place] [phone] * (ABNORMAL) Comprehensive metabolic panel (05/01/2024 1:00 PM EST) Sodium 133 133 - 145 mmol/L LAB CHEMISTRY METHOD 05/01/2024 6:36 PM [facility] Potassium 4.5 3.5 - 5.5 mmol/L LAB CHEMISTRY METHOD 05/01/2024 6:36 PM [facility] Chloride 101 96 - 110 mmol/L LAB CHEMISTRY METHOD 05/01/2024 6:36 PM [facility] CO2 29 21 - 32 mmol/L LAB CHEMISTRY METHOD 05/01/2024 6:36 PM [facility] Anion Gap 3 3 - 11 LAB CHEMISTRY METHOD 05/01/2024 6:36 PM [facility] Glucose 129(H) 70 - 100 mg/dL LAB CHEMISTRY METHOD 05/01/2024 6:36 PM [facility] BUN 20 5 - 25 mg/dL LAB CHEMISTRY METHOD 05/01/2024 6:36 PM [facility] Creatinine 0.77 0.50 - 1.10 mg/dL LAB CHEMISTRY METHOD 05/01/2024 6:36 PM [facility] eGFR 84 >=60 mL/min/1. 73m2 LAB CHEMISTRY METHOD 05/01/2024 6:36 PM [facility] Comment:Calculation based on the??Chronic Kidney Disease Epidemiology Collaboration (CKD-EPI) equation refit??without adjustment for race. BUN/Creatinine Ratio 26.0 LAB CHEMISTRY METHOD 05/01/2024 6:36 PM [facility] Calcium 9.8 8.5 - 10.5 mg/dL LAB CHEMISTRY METHOD 05/01/2024 6:36 PM [facility] AST (SGOT) 140(H) 10 - 42 unit/L LAB CHEMISTRY METHOD 05/01/2024 6:36 PM [facility] ALT (SGPT) 137(H) 10 - 60 unit/L LAB CHEMISTRY METHOD 05/01/2024 6:36 PM [facility] Alkaline Phosphatase 92 42 - 121 unit/L LAB CHEMISTRY METHOD 05/01/2024 6:36 PM [facility] Total Protein 7.8 6.0 - 8.0 g/dL LAB CHEMISTRY METHOD 05/01/2024 6:36 PM [facility] Albumin 3.9 3.2 - 5.0 g/dL LAB CHEMISTRY METHOD 05/01/2024 6:36 PM [facility] Total Bilirubin 0.8 0.0 - 1.4 mg/dL LAB CHEMISTRY METHOD 05/01/2024 6:36 PM [facility] Blood Venous blood specimen / Unknown Venipuncture / Unknown 05/01/2024 1:00 PM EST 05/01/2024 1:00 PM EST Betty Burnett MD LAB BLOOD ORDERABLES Final Res ult [facility] [address] [place] [address], * ECG (05/01/2024 12:32 PM EST) Betty Burnett MD ECG ORDERABLES Final Result * Falls Risk Assessment (10/23/2023) Falls Risk Assessment abstracted Historical Provider HEALTH MAINTENANCE Final Result * Depression Screening (05/18/2023) HM Depression Screening abstracted Historical Provider HEALTH MAINTENANCE Final Result * Hepatitis C Screening (04/19/2023) Hepatitis C Screening abstracted Historical Provider HEALTH MAINTENANCE Final Result * CT LUNG SCREENING LOW DOSE (04/10/2023 9:19 AM EST) Anatomical Region Laterality Modality Computed Tomogra phy 03/24/2023 10:4 7 AM EST Narrative 04/10/2023 9:19 AM EST [facility] Diagnostic Imaging Department [address] [place] [address] Patient: ??VALERIE LAGUNAS ?/Age/Sex: 1955 - 67 - F Unit#: ??[id number] ? Location/Status: ??SPDICATLS/REG CLI ? Mnemonic/Ordering Site: ??CTLUNGLD/SPCT Ordering Physician: ??CARMINE OSPINA MD CT Lung Screening Low Dose - 03/24/23 - 1054 Report Status:Signed Indication: Greater than 20 total pack-year smoking history, asymptomatic current smoker Technique: Low-dose CT scan of the chest obtained as a lung cancer screening study. Multiplanar reformatted images were obtained. ??Dose reduction technique: ASIR (Adaptive statistical iterative reconstruction) and/or AEC (automated exposure control) COMPARISON: 12/23 and 06/21. FINDINGS: Lack of intravenous contrast limits evaluation of the jesús, vascular structures and visualized abdominal viscera. Lungs/airways: Trachea and central airways are patent. ??Mild bronchial wall thickening. ??Emphysematous changes. ??Few scattered sub-5 mm pulmonary nodules; similar to prior. Few scattered sub-5 mm pulmonary nodules, similar to prior. Base of the neck, mediastinum, heart, chest wall, vessels: ??The assessment of hilar lymphadenopathy is difficult without the use of IV contrast. ??No enlarged mediastinal lymphadenopathy. ??Ascending thoracic aorta is dilated measuring 4.1 cm at the level of the pulmonary trunk (previously 3.9 cm). ??Thoracic aortic and coronary artery calcifications. Upper abdomen: This study was performed without contrast and with lower than standard dose. These factors reduce the sensitivity for detection of small lesions in the upper abdomen. Nodularity of the liver in keeping with cirrhosis. Status post cholecystectomy. ??Colonic diverticulosis. Bones/soft tissues: As shaped thoracic scoliosis. IMPRESSION: No suspicious pulmonary nodules Lung RADS 2: Benign Appearance or Behavior - Continue annual screening with LDCT in 12 months. Dictating Physician: ??EDISON BRITTON MD Electronically Signed by: ??EDISON BRITTON MD Dic Date/Time: ??04/10/23 06 Sign date/Time: ??04/10/23 09 Procedure Note Edison Britton MD - 11/20/2023 [facility] Diagnostic Imaging Department [address] [place], [place] [id number] Patient: BEBOVALERIE J /Age/Sex: 1955 - 67 - F Unit#: [id number] Location/Status: SPDICATLS/REG CLI Mnemonic/Ordering Site: [facility] Ordering Physician: CARMINE OSPINA MD CT Lung Screening Low Dose - 03/24/23 - 1055 Report Status:Signed Indication: Greater than 20 total pack-year smoking history,asymptomatic current smoker Technique: Low-dose CT scan of the chest obtained as a lung cancerscreening study. Multiplanar reformatted images were obtained. Dose reductiontechnique: ASIR (Adaptive statistical iterative reconstruction) and/or AEC(automated exposure control) COMPARISON: 12/23 and 06/21. FINDINGS: Lack of intravenous contrast limits evaluation of the jeúss,vascular structures and visualized abdominal viscera. Lungs/airways: Trachea and central airways are patent. Mild bronchialwall thickening. Emphysematous changes. Few scattered sub-5 mm pulmonarynodules; similar to prior. Few scattered sub-5 mm pulmonary nodules, similar to prior. Base of the neck, mediastinum, heart, chest wall, vessels: The assessmentof hilar lymphadenopathy is difficult without the use of IV contrast. Noenlarged mediastinal lymphadenopathy. Ascending thoracic aorta is dilatedmeasuring 4.1 cm at the level of the pulmonary trunk (previously 3.9 cm). Thoracicaortic and coronary artery calcifications. Upper abdomen: This study was performed without contrast and with lowerthan standard dose. These factors reduce the sensitivity for detection ofsmall lesions in the upper abdomen. Nodularity of the liver in keeping withcirrhosis. Status post cholecystectomy. Colonic diverticulosis. Bones/soft tissues: As shaped thoracic scoliosis. IMPRESSION: No suspicious pulmonary nodules Lung RADS 2: Benign Appearance or Behavior - Continue annual screeningwith LDCT in 12 months. Dictating Physician: EDISON BRITTON MD Electronically Signed by: EDISON BRITTON MD Dic Date/Time: 04/10/23613 Sign date/Time: 04/10/23918 Carmine Ospina MD [facility] [place]ED[place] Final Result * (ABNORMAL) Lipid panel (10/26/2021) LDL/HDL Ratio 2 0 - 4 Triglycerides 49 0 - 150 mg/dL Cholesterol 217(A) 0 - 200 mg/dL HDL 110 >=40 mg/dL LDL Cholesterol 98 0 - 100 mg/dL Blood Venous blood specimen / Unknown Historical Provider LAB BLOOD ORDERABLES Tamara l Result * Colonoscopy (05/26/2017) Colonoscopy No interpreta tion,abstr acted Anatomical Region Laterality Modality Other Historical Provider HEALTH MAINTENANCE Final Result from Last 3 Months or Most Recently Relevant to Health Maintenance Insurance MEDICAID - [place] [employer] MEDICARE Advance Directives Documents on File Type Date Recorded Patient [employer]osed Circuit Screen Watcher Expl anation Health Care Decision (hx) 03/30/2023 AD HERRERA DIRECTIVE Health Care Decision (hx) 03/30/2023 AD HERRERA DIRECTIVE Health Care Decision (hx) 03/30/2023 AD HERRERA DIRECTIVE Health Care Decision (hx) 03/30/2023 AD HERRERA DIRECTIVE Health Care Decision (hx) 03/24/2023 AD HERRERA DIRECTIVE Health Care Decision (hx) 03/24/2023 AD HERRERA DIRECTIVE Health Care Decision (hx) 03/24/2023 AD HERRERA DIRECTIVE Health Care Decision (hx) 03/24/2023 AD HERRERA DIRECTIVE Health Care Decision (hx) 03/24/2023 AD HERRERA DIRECTIVE Health Care Decision (hx) 03/24/2023 AD HERRERA DIRECTIVE Health Care Decision (hx) 07/19/2021 AD HERRERA DIRECTIVE Health Care Decision (hx) 07/19/2021 AD HERRERA DIRECTIVE Health Care Decision (hx) 07/19/2021 AD HERRERA DIRECTIVE Health Care Decision (hx) 07/19/2021 AD HERRERA DIRECTIVE Health Care Decision (hx) 07/19/2021 AD HERRERA DIRECTIVE Health Care Decision (hx) 07/19/2021 AD HERRERA DIRECTIVE Health Care Decision (hx) 07/19/2021 AD HERRERA DIRECTIVE Health Care Decision (hx) 07/19/2021 AD HERRERA DIRECTIVE Health Care Decision (hx) 07/19/2021 AD HERRERA DIRECTIVE Health Care Decision (hx) 07/19/2021 AD HERRERA DIRECTIVE Health Care Decision (hx) 07/19/2021 AD HERRERA DIRECTIVE Health Care Decision (hx) 07/19/2021 AD HERRERA DIRECTIVE Health Care Decision (hx) 07/19/2021 AD HERRERA DIRECTIVE Health Care Decision (hx) 07/19/2021 AD HERRERA DIRECTIVE Care Teams Capacity Manager Relationship Specialty Start Date End Date Betty Burnett MD [address] [place] [phone] PCP - General Internal Medicine 03/25/24
--- OUTSIDE RECORDS SUMMARY | 2024-07-04 13:14 | XMS_ITS | Encounter Summary ---
Author Organization [facility] Address [address] [place] [address] Care Team Providers Care Plastic Press Molder Name Role Phone Betty Burnett MD Primary Care Provider [phone] Encounter Details Date Type Department Care Team (Late st Contact Info) Description 07/04/2024 Telephone Internal Medicine - [place] [address] [facility] [address] [place] [address] Betty Burnett MD 175 [facility] [address] [place] [address] Social History Tobacco Use Types [...] as of this encounter Progress Notes * Jacqui Schaffer - 07/04/2024 11:55 AM EDT documented in this encounter Plan of Treatment Upcoming Encounters Date Type Department Care Team (Late st Contact Info) Description 07/19/2024 11:00 AM EDT Ancillary Procedure [facility] [address] [facility] [address] [place] [address] 08/05/2024 11:15 AM EDT Office Visit Internal Medicine - [place] [address] [phone] Jose Varner MD [address] [address] 09/03/2024 12:00 PM EDT Appointment [facility] [address] [place] [phone] Yaron Belle MD [address] [address] 09/05/2024 12:45 PM EDT Office Visit Internal Medicine - [place] [address] [phone] Betty Burnett MD [address] [phone] documented as of this encounter Visit Diagnoses Not on filedocumented in this encounter Additional Health Concerns Assessment Noted Time PHQ-9 Depression Total Score: 2 04/24/19 25 1:10 PM EST A fall risk assessment has been complete d for the patient 04/24/2024 1:06 PM EST documented as of this encounter Care Teams Plastic Press Molder Relationship Specialty Start Date End Date Betty Burnett MD [address] [phone] PCP - General Internal Medicine 03/25/24 documented as of this encounter
== END 2024-07-04 12:26 | disposition home or self-care (01) ==
LOC: HO.HKAS 11:57
PROVIDERS: PCP Internal Medicine; Referring Provider Internal Medicine; Visit Provider Internal Medicine Nephrology
DX: I10 Essential (primary) hypertension (principal); R60.9 Edema, unspecified
CPT/HCPCS: 99204

== ENCOUNTER → 2024-07-04 11:56 | Outpatient (BNVA) | payer MEDICARE, SELFPAY | PROVIDERS: PCP Internal Medicine; Referring Provider Internal Medicine; Visit Provider Internal Medicine Nephrology | DX: I10 Essential (primary) hypertension (principal); R60.9 Edema, unspecified; J44.9 Chronic obstructive pulmonary disease, unspecified; F17.210 Nicotine dependence, cigarettes, uncomplicated; Z79.899 Other long term (current) drug therapy | CPT/HCPCS: 99202 ==

== ENCOUNTER 2024-08-27 10:36 | Outpatient (AMB) | payer MEDICARE, SELFPAY ==
--- NOTE | 2024-08-27 10:59 | HO.NEPHOV ---
Vital Signs 08/27/24 11:00 Height 5 ft 4 in Weight 184 lb 2 oz BMI 31.6 BP 122/80 Blood Pressure Location Lt brachial Position Sitting Pulse 82 Pulse Source Pulse Oximeter Pulse Oximetry (%) 94 Oxygen Delivery Method Room Air Intake Visit Reasons: 1mon follow-up w/labs-Conf Alcoholism Worker Required: No Accompanied by: Self / Same As Patient Allergies No Known Allergies [No Known Allergies*] Allergy (Verified 08/27/24 11:00) HPI Comments Details: I had the privilege of seeing Valerie in follow up for labile hypertension. She has history of liver cirrhosis with ascites and hepatic encephalopathy as well as alcoholic pancreatitis in the past. She was on amlodipine, lisinopril, hydrochlorothiazide as well as clonidine. Even though I D/Miah Amlodipoine at the last visit , she has been taking it. She denies taking excessive sodium in the diet. Her serum potassium and renal function are normal. She has COPD and continues to be smoking. She has been having lower extremity swelling ever since she has been started on amlodipine. Her serum albumin has been close to normal. She denies any orthostatic symptoms. She has never been on nadalol. She claims to be compliant with medications and avoids any excessive nonsteroidal anti-inflammatories. She sees a buttonhole maker hand. REPLACED BY [facility] Medical History (Updated 07/04/24 @ 14:51 by Indra Robertson MD) Vitamin D deficiency Varicose vein of leg Urinary incontinence, urge Rheumatoid factor positive Portal hypertension Obesity (BMI 30-39.9) Migraine without status migrainosus, not intractable Lung nodule, multiple Insomnia Hypothyroidism Hypertension Hepatic encephalopathy Diverticulosis COPD (chronic obstructive pulmonary disease) with chronic bronchitis Cirrhosis of liver with ascites Chronic midline low back pain without sciatica Chronic cholecystitis with calculus Anxiety disorder Alcoholic pancreatitis Acid reflux Surgical History H/O wisdom tooth extraction H/O endoscopy H/O shoulder surgery H/O colonoscopy H/O section Family History Mother Colon cancer Father Hypertension Social History (Updated 07/04/24 @ 12:05 by Loren Appiah MA) Alcohol intake: former Patient Tobacco Use Status: Current everyday Tobacco user Review of Systems Const All systems reviewed & are unremarkable except as noted in HPI and below Physical Exam Const General: comfortable and no acute distress Orientation/consciousness: patient oriented x3 HEENT Head: Yes normocephalic Mouth: Normal oral and palatal mucosa present Eyes EOM: EOMs intact bilaterally Neck Neck: Yes supple Resp Auscultation: clear to auscultation bilaterally Cardio Jugular venous distension: no JVD Rate: regular rate GI Palpation (GI): Soft to palpation Auscultation: normal bowel sounds General: Yes no CVA tenderness Back/Spine/Pelvis Back: no CVA tenderness Skin General skin exam: no rashes or lesions noted Neuro General: patient oriented x3 and moves all extremities Extrem General: Yes no pedal edema Results Reviewed Nephrology Results: No Data to Display Assessment & Plan Assessment & Plan (1) Hypertension: Code(s): I10 - Essential (primary) hypertension Category: Medical Qualifiers: Hypertension type: primary hypertension Qualified Code(s): I10 - Essential (primary) hypertension (2) Edema: Code(s): R60.9 - Edema, unspecified Category: Medical Qualifiers: Edema type: unspecified Qualified Code(s): R60.9 - Edema, unspecified Plan Valerie has longstanding hypertension. She has edema ever since she has been started on amlodipine. Her last serum albumin was 3.9. She is on lisinopril, hydrochlorothiazide as well as clonidine. Discontinued her amlodipine. She should continue low-dose spironolactone given history of liver issues. She had a venous duplex which has ruled out DVT. I plan to cut back and wean her off clonidine if at all possible. Her renal functions are normal. She should maintain low-sodium diet and quit smoking. She has never taken Nadalol and there is no documentation to support she has high portal pressure. Further optimization of her medication regiment will be based on evolving data. Answered all questions Orders: Orders Creatinine 3 Months I10 - Essential (primary) hypertension, R60.9 - Edema, unspecified Blood Urea Nitrogen 3 Months I10 - Essential (primary) hypertension, R60.9 - Edema, unspecified Electrolytes 3 Months I10 - Essential (primary) hypertension, R60.9 - Edema, unspecified Calcium 3 Months I10 - Essential (primary) hypertension, R60.9 - Edema, unspecified Coding Level of Care Code Est Pt Level 4 (14653) Diagnoses Primary hypertension I10 Hypertension type: primary hypertension Edema, unspecified type R60.9 Edema type: unspecified
[2024-08-27 11:00] VITALS: BP 122/80; PULSE 82; O2SAT 94; BMI 31.6
--- OUTSIDE RECORDS SUMMARY | 2024-08-27 11:21 | XMS_ITS | Clinical Summary ---
Author Organization 175 [facility] Address [address] [place] [address] Phone Care Team Providers Care Pass Worker Name Role Phone Betty Burnett MD Primary Care Provider [phone] Allergies Active Allergy Reactions Criticality Noted Date Comments Acetaminophen 08/23/2024 Other Reaction(s): hep C Medications magnesium oxide (MAG-OX) 400 mg (241.3 elemental magnesium) tablet 01/19/20 24 Active cyclobenzaprin e (FLEXERIL) 5 mg tablet TAKE 1 TABLET BY MOUTH AT BEDTIME NEEDED FOR MUSCLE SPASMS. 12/01/19 24 Active butalbital-asp irin-caffeine (FIORINAL) 50-325-40 mg per capsule Take 1 [...] DIARRHEA. 10/16/19 24 Active polyethylene glycol (GoLYTELY) 236-22.74-6.74 -5.86 gram solution [...] (PROzac) 20 mg capsule 05/15/19 24 Active cyclobenzaprin e (FLEXERIL) 5 mg tablet 03/21/20 23 Active fluticasone-um eclidinium-preeti anterol (Trelegy Ellipta) 100-62.5-25 mcg inhaler INHALE 1 PUFF INTO THE LUNGS DAILY. 02/21/20 23 Active alendronate-ch olecalciferol (FOSAMAX PLUS D) 70 mg- 5,600 unit per tablet 07/12/19 23 Active acetaminophen (TYLENOL) 500 mg tablet TAKE 1 TABLET BY MOUTH EVERY 4-6 HOURS NEEDED FOR PAIN 04/28/19 23 Active hydrOXYzine HCL (ATARAX) 50 mg tablet 10/07/19 22 Active folic acid (FOLVITE) 1 mg tablet Take 1 mg by mouth daily. Active fluticasone propionate (FLONASE) 50 mcg/actuation nasal spray 1 [place] by Nasal route daily. 08/07/19 21 Active cyanocobalamin (VITAMIN B-12) 1,000 mcg tablet TAKE 1 TABLET BY MOUTH EVERY DAY 04/18/19 21 Active FLUoxetine (PROzac) 40 mg capsule 07/25/19 20 Active lisinopril (PRINIVIL,ZEST RIL) 40 mg tablet Take 1 tablet (40 mg total) by mouth 1 (one) time each day. 30 tablet 5 03/26/20 24 Active oxyBUTYnin XL (Ditropan XL) 5 mg 24 hr tablet Take 1 tablet (5 mg total) by mouth 1 (one) time each day. Do not crush, chew, or split. 90 each 04/24/19 25 Active Additional Information Patient not taking.Reported on 06/26/2024 ibuprofen (ADVIL,MOTRIN) 600 mg tablet Take 1 tablet (600 mg total) by mouth 3 (three) times a day if needed for mild pain (pain). 40 tablet 05/01/19 25 Active amLODIPine (NORVASC) 5 mg tablet Take 1 tablet (5 mg total) by mouth 1 (one) time each day. 90 each 05/01/19 25 Active fluticasone-um eclidinium-preeti anterol (Trelegy Ellipta) 200-62.5-25 mcg inhaler Inhale 1 [...] day. 90 capsule 2 05/30/19 25 Active cyclobenzaprin e (FLEXERIL) 5 mg tablet TAKE 1 TABLET (5 MG TOTAL) BY MOUTH AT BEDTIME NEEDED FOR MUSCLE SPASMS. 30 tablet 1 06/07/19 25 Active folic acid (FOLVITE) 800 mcg tablet Take 1 tablet (800 mcg total) by mouth 1 (one) time each day. 30 tablet 06/20/19 25 Active albuterol HFA (PROAIR HFA ; PROVENTIL HFA ; VENTOLIN HFA) 90 mcg/actuation inhaler Inhale 2 puffs by mouth every 6 (six) hours if needed for wheezing. 6.7 g 1 06/27/19 25 Active FLUoxetine (PROzac) 20 mg capsule Take 1 capsule (20 mg total) by mouth 1 (one) time each day. 90 capsule 1 06/27/19 25 Active hydrOXYzine HCL (ATARAX) 10 mg tablet TAKE 1 TABLET (10 MG TOTAL) BY MOUTH 3 (THREE) TIMES A DAY. 90 tablet 07/12/19 25 Active butalbital-sienna taminophen-caf feine (FIORICET, ESGIC) 50-325-40 mg per tablet Take 1 tablet by mouth every 6 (six) hours if needed for headaches. for pain 12 tablet 07/23/19 25 Active hydroCHLOROthi azide 12.5 mg tablet TAKE 1 TABLET (12.5 MG TOTAL) BY MOUTH 1 (ONE) TIME EACH DAY. 30 tablet 07/31/19 25 025 Active mirtazapine (REMERON) 7.5 mg tablet TAKE 1 TABLET BY MOUTH AT BEDTIME 30 tablet 2 08/07/19 25 Active polyethylene glycol (Golytely) 236-22.74-6.74 -5.86 gram solution Take 4L by mouth once for one dose. May substitue any PEG. Starting at 6PM the night before your procedure drink 1 8oz glasses at your own pace until you complete half of the gallon. Finish 2nd half of the gallon 5 hours before your procedure. 4000 mL 08/21/19 25 Active bisacodyL (DULCOLAX) 5 mg EC tablet Take 2 tablets by mouth right before beginning bowel prep. See instructions provided by the office 2 tablet 08/21/19 25 Active levothyroxine (SYNTHROID, LEVOTHROID) 25 mcg tablet Take 1.5 tablets (37.5 mcg total) by mouth 1 (one) time each day. 45 tablet 1 08/21/19 25 Active butalbital-sienna taminophen-caf feine (FIORICET, ESGIC) 50-325-40 mg per tablet TAKE 1 TABLET BY MOUTH EVERY 6 HOURS NEEDED FOR PAIN 12 tablet 08/21/19 25 Active cloNIDine (CATAPRES) 0.2 mg tablet TAKE 1 TABLET (0.2 MG TOTAL) BY MOUTH 2 (TWO) TIMES A DAY. 60 tablet 1 08/22/19 25 Active thiamine 100 mg tablet TAKE 1 TABLET BY MOUTH DAILY. 30 tablet 1 08/22/19 25 Active ferrous sulfate 325 mg (65 mg iron) EC tablet Take 1 tablet (325 mg total) by mouth 1 (one) time each day with breakfast. 30 tablet 1 08/22/19 25 Active levothyroxine (SYNTHROID, LEVOTHROID) 25 mcg tablet TAKE 1 & 1/2 TABLETS BY MOUTH EVERY DAY 45 tablet 2 05/06/19 25 025 Discontinued thiamine 100 mg tablet TAKE 1 TABLET BY MOUTH DAILY. 30 tablet 1 05/20/19 25 025 Discontinued cloNIDine (CATAPRES) 0.2 mg tablet Take 1 tablet (0.2 mg total) by mouth 2 (two) times a day. 60 tablet 1 05/24/19 25 025 Discontinued hydroCHLOROthi azide 12.5 mg tablet Take 1 tablet (12.5 mg total) by mouth 1 (one) time each day. 30 each 1 06/27/19 25 025 Discontinued ferrous sulfate 325 mg (65 mg iron) EC tablet TAKE 1 TABLET BY MOUTH DAILY (WITH BREAKFAST). 30 tablet 07/02/19 25 025 Discontinued mirtazapine (REMERON) 7.5 mg tablet Take 1 tablet (7.5 mg total) by mouth at bedtime. at bedtime. 30 tablet 1 07/11/19 25 025 Discontinued butalbital-sienna taminophen-caf feine (FIORICET, ESGIC) 50-325-40 mg per tablet TAKE 1 TABLET BY MOUTH EVERY 6 HOURS NEEDED FOR PAIN 12 tablet 07/23/19 25 025 Discontinued Active Problems Problem Noted Date [...] obstructive pu lmonary disease) with chronic bronchitis (CMS/HCC V24, CMS/HCC V28) 12/21/2018 Hepatic encephalopathy (CMS/HCC V24, CMS/HCC V28 ) 12/20/2018 Chronic cholecystitis with calculus 07/18/2018 Hypothyroidism [...] in 05/2016 Cirrhosis of liver with ascites (CMS/HCC V24, CM S/HCC V28) 04/14/2015 Overview (02/27/2024): Onset 2015. Assessment & Plan (04/25/2024 11:32 PM EST): Orders: Thyroid stimulating hormone with reflex to free t4 and free t3; Future Comprehensive metabolic panel; Future CBC and differential; Future Alcoholic pancreatitis 12/23/2014 Portal hypertension (CMS/HCC V24, CMS/HCC V28) 0 12/23/2014 Acid reflux 07/29/2013 Anxiety disorder 07/29/2013 Overview (02/27/2024): Last Assessment & Plan: I encouraged her to call PCP office and explain she is on waiting list for provider and needs meds in meantime. She contracted for safety. Urinary incontinence, urge 07/29/2013 Encounters Date Type Department Care Team Description 07/19/2024 11:00 AM EDT Ancillary Procedure [facility] [address] [place] [address] COPD (chronic obstructive pulmonary disease) with chronic bronchitis (CMS/HCC V24, CMS/HCC V28); Shortness of breath; RBBB 07/12/2024 Telephone Internal Medicine [facility] [address] [phone] Betty Burnett MD medication (Anxiety / medication) 07/11/2024 Telephone Internal Medicine [facility] [address] [phone] Betty Burnett MD Appointment 07/10/2024 [place] [facility] [address] [phone] Betty Burnett MD [place]: Referral 07/08/2024 [place] [facility] [address] [phone] Nitesh Aaron [place] Results 07/04/2024 Telephone Internal Medicine [facility] [address] [phone] Betty Burnett MD 07/02/2024 Telephone Internal Medicine [facility] [address] [phone] Betty Burnett MD [place]: Call Back 07/01/2024 1:28 PM EDT - 07/01/2024 11:59 PM EDT Hospital Encounter [facility] Ultrasound [address] [place] [address] Leg swelling Discharge Disposition: Home or Self Care 06/26/2024 10:00 AM EDT Office Visit Internal Medicine - [place] 175 [facility] [address] [place] [address] Jose Varner MD Leg swelling (Primary Dx); Primary hypertension; [place] eye disease of left eye 06/25/2024 Telephone Internal Medicine - [place] 175 [facility] [address] [place] [phone] Betty Burnett MD Conjunctivitis 06/10/2024 11:11 AM EDT - 06/10/2024 11:59 PM EDT [facility] [address] [place] [phone] Breast cancer screening by mammogram Discharge Disposition: Home or Self Care from Last 3 Months Immunizations Name Administration [...] COMMENT: Negative UPPER GASTROINTESTINAL ENDOSCOPY 04/30/2015 PROCEDURE: NM UPPER GI ENDOSCOPY PERFORMED; COMMENT: [facility]; small varices, minimal chemical gastritis, no H. pylori. COLONOSCOPY 05/26/2017 PROCEDURE: HISTORICAL COLONOSCOPY; COMMENT: [facility]; 8 mm serrated adenoma transverse colon. Diverticulosis. UPPER GASTROINTESTINAL ENDOSCOPY 2018 PROCEDURE: NM UPPER GI ENDOSCOPY PERFORMED; COMMENT: erosive gastritis, minimal esophageal varices, Path: Mild reactive gastropathy, no H. pylori infection. OTHER SURGICAL HISTORY PROCEDURE: PUNCTURE/DRAIN PERITONEAL CAVITY; COMMENT: March 2019 Medical History Medical History Date Comments HTN (hypertension) DX:HTN (hyper tension) Depression DX:Depression Anxiety DX:Anxiety Hepatitis C DX:Hepatitis C; COMMENT: diagnosed 10 yrs Cirrhosis of liver with asci fermin (CMS/HCC V24, CMS/HCC V28) 04/14/2015 DX:Cirrhosis of liver with ascites (HCC); COMMENT: Onset 2015. Rheumatoid factor positive [...] Elevated LFTs DX:Elevated LFTs Cirrhosis of liver (CMS/HCC V24, CMS/HCC V28) DX:Cirrhosis of liver (HCC) Insomnia DX:Insomnia COPD (chronic obstructive pu lmonary disease) (CMS/HCC V24, CMS/HCC V28) DX:COPD (chronic o bstructive pulmonary disease) (HCC) Pulmonary emphysema (CMS/HCC V24, CMS/HCC V28) DX:Pulmonary emphysema (HCC) Family History Medical History Relation Name Comments Colon cancer Mother Breast cancer Neg Hx Ovarian cancer Neg Hx Uterine cancer Neg Hx Relation Name Status Comments Father (Age 89) Mother (Age 95) Social History Tobacco Use Types Packs/Day Years Used Date Smoking Tobacco: Every Day Cigarettes 0.8 54.8 Started: 1970 Smokeless Tobacco: Never Tobacco Cessation:Ready [...] Sign Reading Time Taken Comments Blood Pressure 120/85 07/19/2024 11:55 AM EDT Pulse 58 06/26/2024 10:40 AM EDT Temperature 36.9 ??C (98.4 ??F) 06/26/2024 10:40 AM E DT Respiratory Rate - - Oxygen Saturation 97% 06/26/2024 10:40 AM EDT Inhaled Oxygen Concentration - - Weight 81.6 kg (180 lb) 07/19/2024 11:55 AM EDT Height 162.6 cm (5' 4 ) 07/19/2024 11:55 AM EDT Body Mass Index 30.9 07/19/2024 11:55 AM EDT Plan of Treatment Upcoming Encounters Date Type Department Care Team (Late st Contact Info) Description 09/03/2024 12:00 PM EDT Hospital Encounter [facility] Endoscopy [address] [place] [phone] Yaron Belle MD [address] [address] 09/05/2024 12:45 PM EDT Office Visit Internal Medicine - [place] [address] [phone] Betty Burnett MD [address] [phone] Health Maintenance Due Date Last Done Comments [...] Screening (Low Dose CT) 04/10/2024 04/10/2023, 06/08/2020 COVID-19 Vaccine ( season) 2024 01/17/2024, 09/15/2022, 07/22/2021, Additional history exists Depression Screening 04/24/2025 04/24/2024, 05/18/19 24 Falls Risk Assessment 04/24/2025 04/24/2024, 024 Medicare Annual Wellness Visit 04/24/2025 04/24/2024 Hypertension/CHF/CAD Annual BMP Blood Test 07/23/2025 07/23/2024, 05/01/2024, 10/23/2023, Additional history exists Breast Cancer Screening 06/10/2026 06/10/2024, 03/13 Cholesterol Screening (Lipid Panel) 10/26/2026 10/26/2021 DTaP,Tdap,and Td Vaccines (4 - Td or Tdap) 01/13/2031 01/13/2021, 07/29/2013, 10/02/2003 Hepatitis C Screening Completed 04/19/2023 Influenza Vaccine Completed 01/17/2024, , 03/10/2022, Additional [...] age to complete this topic Meningococcal B Vaccine Aged Out No l onger eligible based on patient's age to complete this topic RSV Immunization Patients Under 20 months Aged Out No longer eligible based on patient's age to complete this topic Varicella Vaccines Aged Out No longer eligible based on patient's age to complete this topic Procedures Procedure Name Priority Date/Time Associated Diagnosis Comments CREATININE, SERUM Routine 07/23/2024 12: 42 PM EDT Essential hypertension, malignant BUN Routine 07/23/2024 12:42 PM EDT Essential hypertension, malignant ELECTROLYTE PANEL Routine 07/23/2024 12: 42 PM EDT Essential hypertension, malignant TRANSTHORACIC ECHOCARDIOGRAM (TTE) COMPLETE Routine 07/19/2024 11:55 AM EDT COPD (chronic obstructive pulmonary disease) with chronic bronchitis (CMS/HCC V24, CMS/HCC V28) Shortness of breath RBBB VAS US DUPLEX LOWER EXT VENOUS LEFT STAT 07/01/2024 1:50 PM EDT Leg swelling EXTERNAL VASCULAR ULTRASOUND 07/01/2024 [facility] MAMMO DIGITAL SCREENING W SP BILAT Routine 06/10/2024 11:23 AM EDT Breast cancer screening by mammogram FALLS RISK ASSESSMENT Routine 10/23/2023 DEPRESSION SCREENING Routine 05/18/2023 HEPATITIS C SCREENING Routine 04/19/2023 CT LUNG SCREENING LOW DOSE Routine 04/10/2023 9:19 AM EST Encounter for screening for malignant neoplasm of respiratory organs LIPID PANEL Routine 10/26/2021 COLONOSCOPY Routine 05/26/2017 from Last 3 Months or Most Recently Relevant to Health Maintenance Results * Creatinine (07/23/2024 12:42 PM EDT) Creatinine 0.87 0.50 - 1.10 mg/dL LAB CHEMISTRY METHOD 07/23/2024 2:03 PM EDT [facility] eGFR 72 >=60 mL/min/1. 73m2 LAB CHEMISTRY METHOD 07/23/2024 2:03 PM EDT [facility] Comment:Calculation based on the??Chronic Kidney Disease Epidemiology Collaboration (CKD-EPI) equation refit??without adjustment for race. Blood Venous blood specimen / Unknown Venipuncture / Unknown 07/23/2024 12:42 PM EDT 07/23/2024 12:53 PM EDT us Indra Robertson MD LAB BLOOD ORDERABLES Final Resul t Performing Organization Address City/[facility]/ZIP Co de Phone Number [facility] [address] [place] [address], [place] [phone] * BUN (07/23/2024 12:42 PM EDT) Pathologist [facility] BUN 18 5 - 25 mg/dL LAB CHEMISTRY METHOD 07/23/2024 2:03 PM EDT [facility] Blood Venous blood specimen / Unknown Venipuncture / Unknown 07/23/2024 12:42 PM EDT 07/23/2024 12:53 PM EDT us Indra Robertson MD LAB BLOOD ORDERABLES Final Resul t Performing Organization Address [facility]/ZIP Co de Phone Number [facility] [address] [place] [address], [place] [phone] * Electrolyte panel (07/23/2024 12:42 PM EDT) Sodium 135 133 - 145 mmol/L LAB CHEMISTRY METHOD 07/23/2024 2:03 PM EDT [facility] Potassium 4.0 3.5 - 5.5 mmol/L LAB CHEMISTRY METHOD 07/23/2024 2:03 PM EDT [facility] Chloride 103 96 - 110 mmol/L LAB CHEMISTRY METHOD 07/23/2024 2:03 PM EDT [facility] CO2 29 21 - 32 mmol/L LAB CHEMISTRY METHOD 07/23/2024 2:03 PM EDT [facility] Anion Gap 3 3 - 11 LAB CHEMISTRY METHOD 07/23/2024 2:03 PM EDT [facility] Blood Venous blood specimen / Unknown Venipuncture / Unknown 07/23/2024 12:42 PM EDT 07/23/2024 12:53 PM EDT us Indra Robertson MD LAB BLOOD ORDERABLES Final Resul t [facility] [address] [place] [address], [place] [phone] * (ABNORMAL) TRANSTHORACIC ECHOCARDIOGRAM (TTE) COMPLETE (07/19/2024 11:55 AM EDT) Left Atrium Major Magnolia 5.8 cm CV PACS LA Area Sys (A4C) 23 cm2 CV PACS RA Area 11.1 cm2 CV PACS RA 2D Volume 20 mL CV PACS Aortic Sinus Valsalva 3.9 cm CV PACS Ascending Aorta 4.2 cm CV PACS IVC Proximal 1.9 cm CV PACS IVC Proximal 0.6 cm CV PACS IVSD 1.4(A) 0.6 - 0.9 cm CV PACS LVIDD 5.3(A) 3.8 - 5.2 cm CV PACS LVIDS 2.7 2.2 - 3.5 cm CV PACS LVOT Diameter 2.4 cm CV PACS LVOT Mean Jack 0.7 m/s CV PACS LVOT Mean Grad 2 mmHg CV PACS LVOT Peak VTI 23.1 cm CV PACS LVOT Peak Jack 1.0 m/s CV PACS LVOT Peak Gradient 4 mmHg CV PACS LVPWD 1.1(A) 0.6 - 0.9 cm CV PACS MV E' Tissue Velocity Lateral 7 cm/s CV PACS MV E' Tissue Velocity Septal 5 cm/s CV PACS LVOT Area 4.5 cm2 CV PACS LVOT Stroke Volume 104 mL CV PACS E Wave Deceleration Time 243(A) 119 - 242 ms CV PACS MV Peak A Jack 1.21 m/s CV PACS MV Peak E Jack 1.10 m/s CV PACS MV Mean Gradient 4 mmHg CV PACS MV VTI 35.9 cm CV PACS Mitral Valve Max Velocity 1.3 m/s CV PACS MV Peak Gradient 7 mmHg CV PACS MV Area Continuity Equation 2.9 cm2 CV PACS PV Acceleration Time 101 ms CV PACS RV Diastolic Basal Dimension 2.4(A) 2.5 - 4.1 cm CV PACS RV S' 9 cm/s CV PACS TAPSE 22 mm CV PACS TR Peak Velocity 2.10 m/s CV PACS TR Peak Gradient 18 mmHg CV PACS E/E' Ratio Septal 22 CV PACS E/E' Ratio Averaged 19 CV PACS Relative Wall Thickness ratio 0.42 CV PACS FS 49 % CV PACS LV Mass 2D 272 g CV PACS MV VTI:LVOT VTI ratio 1.6 CV PACS LVOT flow 317 mL/s CV PACS E/A Ratio 0.9 CV PACS E/E' Ratio Lateral 16 CV PACS BSA 1.92 m2 CV PACS LVIDD Index 2.83 cm/m2 CV PACS LVIDS Index 1.44 cm/m2 CV PACS LV Mass Index 2D 145(A) 44 - 88 g/m2 CV PACS LVOT Stroke Index 56 mL/m2 CV PACS RA 2D Volume Index 11(A) 15 - 27 mL/m2 CV PACS Ascending Aorta Index 2.25 cm/m2 CV PACS Left Atrium Minor Magnolia 6.0 cm CV PACS LA Area Sys (A2C) 27 cm2 CV PACS LA Volume (BP) 82 mL CV PACS LA Volume Index (BP) 44 mL/m2 CV PACS Anatomical Region Laterality Modality Ultrasound Narrative 07/22/2024 9:38 AM EDT ?Left ventricle cavity size is normal. There is mild to moderate hypertrophy. Systolic function is normal with an ejection fraction of 60-65%. There are no regional LV wall motion abnormalities. ?Right ventricle cavity is normal. Right ventricular systolic function is normal. ?Left atrium cavity is moderately dilated. ?Aortic valve sclerosis without significant stenosis. ??Mild aortic valve regurgitation. ?There is trace mitral regurgitation. There is mild stenosis. ?Tricuspid regurgitation is inadequate for estimation of right ventricular systolic pressure. ?The ascending aorta is dilated (4.2 cm). ?No prior study for comparison. Left Ventricle Left ventricle cavity size is normal. There is mild to moderate hypertrophy. Systolic function is normal with an ejection fraction of 60-65%. There are no regional LV wall motion abnormalities. Unable to assess diastolic function due to mitral valve disorder. Right Ventricle Right ventricle cavity appears normal. Systolic function is normal. Left Atrium Left atrium cavity is moderately dilated. Right Atrium Right atrium cavity is normal. IVC/SVC Inferior vena cava structure is normal. RA pressures is estimated to be 3 mmHg (IVC diameter <21 mm and decreases >50% during inspiration). Mitral Valve The leaflets are mildly thickened. There is mild annular calcification. There is trace regurgitation. There is mild stenosis. Tricuspid Valve Tricuspid valve structure is normal. There is trace regurgitation. Tricuspid regurgitation is inadequate for estimation of right ventricular systolic pressure. There is no significant tricuspid valve stenosis. Aortic Valve The aortic valve is trileaflet. The leaflets are not thickened and exhibit normal excursion. There is mild regurgitation with a centrally directed jet. There is no evidence of aortic valve stenosis. Pulmonic Valve The pulmonic valve was not well visualized. No significant pulmonic valve regurgitation. No significant pulmonary valve stenosis noted. Ascending Aorta The Sinus of Valsalva is (3.9 cm). The ascending aorta is (4.2 cm). Pericardium Pericardium appears normal. There is no pericardial effusion. Study Details Overall the study quality was adequate. us Betty Burnett MD CV ECHO PROCEDURES Final Resul t * Vascular US duplex lower extremity venous [...] Signed Date: 07/01/2024 14:03 ET Workstation ID: [id number] Transcribed By: Self Edit Transcribed Date: 07/01/2024 [...] Signed Date: 07/01/2024 14:03 ET Workstation ID: [id number] Transcribed By: Self Edit Transcribed Date: 07/01/2024 14:02 ET us Jose Varner MD CV VASCULAR PROCEDURES Final Res ult * External Vascular Ultrasound (07/01/2024) Anatomical Region Laterality Modality Ultrasound us Provider [facility] CV VASCULAR PROCEDURES F inal Result * MG Mammo Digital Screening w Sp [...] mammogram BILATERAL in 1 year. Mammography location: [facility] at [address], [address] -------- FINAL REPORT -------- Dictated By: Abhay Rivas Dictated Date: 06/10/2024 13:28 ET Assigned Physician: Abhay Rivas Reviewed and Electronically Signed By: Abhay Rivas Signed Date: 06/10/2024 13:35 ET Workstation ID: [id number] Transcribed By: Self Edit Transcribed Date: 06/10/2024 [...] year. Mammography location: [facility] [address] [place], [address] -------- FINAL REPORT -------- Dictated By: Abhay Rivas Dictated Date: 06/10/2024 13:28 ET Assigned Physician: Abhay Rivas Reviewed and Electronically Signed By: Abhay Rivas Signed Date: 06/10/2024 13:35 ET Workstation ID: [id number] Transcribed By: Self Edit Transcribed Date: 06/10/2024 13:28 ET Betty Burnett MD IMG BI PROCEDURES Final Result * Falls Risk Assessment (10/23/2023) Falls Risk Assessment abstracted Historical Provider HEALTH MAINTENANCE Final Result * Depression Screening (05/18/2023) Depression Screening abstracted Historical Provider HEALTH MAINTENANCE Final Result * Hepatitis C Screening (04/19/2023) Hepatitis C Screening abstracted Historical Provider HEALTH MAINTENANCE Final Result * CT LUNG SCREENING LOW DOSE (04/10/2023 9:19 AM EST) Anatomical Region Laterality Modality Computed Tomogra phy 03/24/2023 10:4 7 AM EST Narrative 04/10/2023 9:19 AM EST [facility] Diagnostic Imaging Department [address] [place] [address] Patient: ??VALERIE LAGUNAS ?/Age/Sex: 1955 - 67 - F Unit#: ??[id number] ? Location/Status: ??SPDICATLS/REG CLI ? Mnemonic/Ordering Site: [...] Signed by: ??EDISON BRITTON MD Dic Date/Time: ??04/10/23613 Sign date/Time: ??04/10/23918 Procedure Note Edison Britton MD - 11/20/2023 [facility] Diagnostic Imaging Department [address] [place] [id number] Patient: VALERIE LAGUNAS Olya Collins/Age/Sex: 1955 - 67 - F Unit#: [id number] Location/Status: [facility] CLI Mnemonic/Ordering Site: [facility] Ordering Physician: CARMINE OSPINA MD CT [...] of intravenous contrast limits evaluation of the jesús,vascular structures and visualized abdominal viscera. Lungs/airways: Trachea [...] Signed by: EDISON BRITTON MD Dic Date/Time: 04/10/2314 Sign date/Time: 04/10/23918 Carmine Ospina MD IMG CT PROCEDURES Final Result * (ABNORMAL) Lipid [...] Most Recently Relevant to Health Maintenance Insurance [employer] MEDICARE Advance Directives Documents on File Type Date Recorded Patient Siding Applicator Expl anation Health Care Decision (hx) 03/30/2023 [...] (hx) 07/19/2021 AD HERRERA DIRECTIVE Care Teams Pass Worker Relationship Specialty Start Date End Date Betty Burnett MD [address] [phone] PCP - General Internal Medicine 03/25/24
== END 2024-08-27 11:15 | disposition home or self-care (01) ==
LOC: HO.HKAS 10:36
PROVIDERS: PCP Internal Medicine; Visit Provider Internal Medicine Nephrology
DX: I10 Essential (primary) hypertension (principal); R60.9 Edema, unspecified
CPT/HCPCS: 99214

== ENCOUNTER → 2024-08-27 10:36 | Outpatient (BNVA) | payer MEDICARE, SELFPAY | PROVIDERS: PCP Internal Medicine; Visit Provider Internal Medicine Nephrology | DX: I10 Essential (primary) hypertension (principal); R06.9 Unspecified abnormalities of breathing; J44.9 Chronic obstructive pulmonary disease, unspecified; F17.200 Nicotine dependence, unspecified, uncomplicated | CPT/HCPCS: 99212 ==

== ENCOUNTER 2024-11-26 11:21 | Outpatient (AMB) | payer MEDICARE, SELFPAY ==
--- OUTSIDE RECORDS SUMMARY | 2024-11-25 14:00 | XMS_ITS | Encounter Summary ---
Author Organization [facility] Address [address] [place] [address] Care Team Providers Care Home Appraiser Name Role Phone Betty Burnett MD Primary Care Provider [phone] Reason for Visit * Hospital - Outpatient (Routine) - Authorized Specialty Diagnoses / Procedures Referred By Saleem marie Referred To Contact Gastroenterology Diagnoses Hx of colonic polyps Procedures COLONOSCOPY Anesthesia - MAC; [facility] ENDOSCOPY Yaron Belle MD [address] [facility] [address] [place] [address] Phone: tel: fax: [facility] [address] [place] [address] Phone: tel: Referral ID Status Reason Start Date Expiration Date V isits Requested Visits Authorized [id number] Authorized 09/02/2024 09/02/2025 1 1 Encounter Details Date Type Department Care Team (Late st Contact Info) Description 11/25/2024 2:00 PM EDT Hospital Encounter [facility] End[facility] [address] [place] [address] Yaron Belle MD [address] [place] [address] Laura Taylor, [employer] IN[employer]UMENT MECHANIC [address] [address] Kendra Ralph MD [address] [place] [address] Social History Tobacco Use Types Packs/Day Years Used Date Smoking Tobacco: Every Day Cigarettes 0.8 55 Started: 1970 Smokeless Tobacco: Never Alcohol Use [...] PM EST documented as of this encounter Plan of Treatment Upcoming Encounters Date Type Department Care Team (Late st Contact Info) Description 01/09/2025 1:15 PM EDT Office Visit Internal Medicine - [place] [address] [facility] [address] [place] [address] Betty Burnett MD [address] [place] [phone] Scheduled Orders Name Type Priority Associated Diagnoses Orde r Schedule COLONOSCOPY Anesthesia - MAC; [facility] ENDOSCOPY Endoscopy Routine Hx of colonic polyps Expected: 11/25/2024, Expires: 09/02/2025 documented as of this encounter Visit Diagnoses Not on filedocumented in this encounter Additional Health Concerns Assessment Noted Time PHQ-9 Depression Total Score: 2 04/24/19 1:10 PM EST A fall risk assessment has been complete d for the patient 04/24/2024 1:06 PM EST documented as of this encounter Care Teams Home Appraiser Relationship Specialty Start Date End Date Betty Burnett MD [address] [facility] [address] [place] [phone] PCP - General Internal Medicine 03/25/24 documented as of this encounter
--- NOTE | 2024-11-26 11:32 | HO.NEPHOV ---
Vital Signs 11/26/24 11:35 Height 5 ft 4 in Weight 174 lb 2 oz BMI 29.9 BP 102/62 Blood Pressure Location Lt brachial Position Sitting Pulse 94 Pulse Source Pulse Oximeter Pulse Oximetry (%) 96 Oxygen Delivery Method Room Air Intake Visit Reasons: 3 mo follow up-Conf Screener And Blender Required: No Accompanied by: Self / Same As Patient Allergies No Known Allergies (No Known Allergies*) Allergy (Verified 11/26/24 11:35) HPI Comments Details: I had the privilege of seeing Valerie in follow up for labile hypertension. She has history of liver cirrhosis with ascites and hepatic encephalopathy as well as alcoholic pancreatitis in the past. She was on amlodipine, lisinopril, hydrochlorothiazide as well as clonidine. Even though I D/Miah Amlodipoine at the last visit , she has been taking it. She denies taking excessive sodium in the diet. Her serum potassium and renal function are normal. She has COPD and continues to be smoking. She has been having lower extremity swelling ever since she has been started on amlodipine. Her serum albumin has been close to normal. She denies any orthostatic symptoms. She has never been on nadalol. She claims to be compliant with medications and avoids any excessive nonsteroidal anti-inflammatories. She sees a roll grinder. [facility] Medical History (Updated 07/04/24 @ 14:51 by Indra Robertson MD) Vitamin D deficiency Varicose vein of leg Urinary incontinence, urge Rheumatoid factor positive Portal hypertension Obesity (BMI 30-39.9) Migraine without status migrainosus, not intractable Lung nodule, multiple Insomnia Hypothyroidism Hypertension Hepatic encephalopathy Diverticulosis COPD (chronic obstructive pulmonary disease) with chronic bronchitis Cirrhosis of liver with ascites Chronic midline low back pain without sciatica Chronic cholecystitis with calculus Anxiety disorder Alcoholic pancreatitis Acid reflux Surgical History H/O wisdom tooth extraction H/O endoscopy H/O shoulder surgery H/O colonoscopy H/O section Family History Mother Colon cancer Father Hypertension Social History Alcohol intake: former Patient Tobacco Use Status: Current everyday Tobacco user Review of Systems Const All systems reviewed & are unremarkable except as noted in HPI and below Physical Exam Vital Signs: Last Vital Signs Pulse 94 11/26/24 11:35 BP 102/62 11/26/24 11:35 Pulse Ox 96 11/26/24 11:35 Oxygen Delivery Method Room Air 11/26/24 11:35 BMI result Body Mass Index 29.9 Const General: comfortable and no acute distress Orientation/consciousness: patient oriented x3 HEENT Head: Yes normocephalic Mouth: Normal oral and palatal mucosa present Eyes EOM: EOMs intact bilaterally Neck Neck: Yes supple Resp Auscultation: clear to auscultation bilaterally Cardio Jugular venous distension: no JVD Rate: regular rate GI Palpation (GI): Soft to palpation Auscultation: normal bowel sounds General: Yes no CVA tenderness Back/Spine/Pelvis Back: no CVA tenderness Skin General skin exam: no rashes or lesions noted Neuro General: patient oriented x3 and moves all extremities Extrem General: Yes no pedal edema Assessment & Plan Assessment & Plan (1) Hypertension: Code(s): I10 - Essential (primary) hypertension Category: Medical Qualifiers: Hypertension type: primary hypertension Qualified Code(s): I10 - Essential (primary) hypertension Plan Valerie has longstanding hypertension. She has edema ever since she has been started on amlodipine. Her last serum albumin was 3.9. She is on lisinopril, hydrochlorothiazide as well as clonidine. Discontinued her amlodipine with resolution of edema . She should continue low-dose spironolactone given history of liver issues. She had a venous duplex which has ruled out DVT. I plan to cut back and wean her off clonidine if at all possible. Her renal functions are normal. She should maintain low-sodium diet and quit smoking. She has never taken Nadalol and there is no documentation to support she has high portal pressure. Further optimization of her medication regiment will be based on evolving data. Answered all questions Orders: Orders Creatinine Today I10 - Essential (primary) hypertension Blood Urea Nitrogen Today I10 - Essential (primary) hypertension Electrolytes Today I10 - Essential (primary) hypertension Coding Level of Care Code Est Pt Level 4 (80728) Diagnoses Primary hypertension I10 Hypertension type: primary hypertension
[2024-11-26 11:35] VITALS: BP 102/62; PULSE 94; O2SAT 96; BMI 29.9
--- OUTSIDE RECORDS SUMMARY | 2024-11-26 12:19 | XMS_ITS | Clinical Summary ---
Author Organization [facility] Address [address] [place] [address] Phone Care Team Providers Care Tax Staff Accountant Name Role Phone Betty Burnett MD Primary Care Provider [phone] Allergies No known active allergies Medications cyclobenzapri ne (FLEXERIL) 5 mg tablet TAKE [...] MOUTH ONCE A DAY 11/10/19 24 Active loperamide (IMODIUM) 2 mg capsule [...] propionate (FLONASE) 50 mcg/actuation nasal spray 1 [place] by Nasal route daily. 08/07/19 21 Active cyanocobalami n (VITAMIN B-12) 1,000 mcg tablet TAKE 1 TABLET BY MOUTH EVERY DAY 04/18/19 21 Active FLUoxetine (PROzac) 40 mg capsule 07/25/19 20 Active lisinopril (PRINIVIL,ZES TRIL) 40 mg tablet Take 1 tablet (40 mg total) by mouth 1 (one) time each day. 30 tablet 5 03/26/20 24 Active oxyBUTYnin XL (Ditropan XL) 5 mg 24 hr tablet Take 1 tablet (5 mg total) by mouth 1 (one) time each day. Do not crush, chew, or split. 90 each 3 04/24/19 25 Active ibuprofen (ADVIL,MOTRIN ) 600 mg tablet Take 1 tablet (600 mg total) by mouth 3 (three) times a day if needed for mild pain (pain). 40 tablet 05/01/19 25 Active fluticasone-u meclidinium-v ilanterol (Trelegy Ellipta) 200-62.5-25 mcg inhaler Inhale 1 puff (200 mcg total) by mouth 1 (one) time each day. Rinse mouth with water after use to reduce aftertaste and incidence of candidiasis. Do not swallow. 60 each 1 05/24/19 25 Active folic acid (FOLVITE) 800 mcg [...] day. 90 capsule 1 06/27/19 25 Active butalbital-ac etaminophen-c affeine (FIORICET, ESGIC) 50-325-40 mg per tablet Take 1 tablet by mouth every 6 (six) hours if needed for headaches. for pain 12 tablet 07/23/19 25 Active mirtazapine (REMERON) 7.5 mg tablet TAKE 1 TABLET BY MOUTH AT BEDTIME 30 tablet 2 08/07/19 25 Active polyethylene glycol (Golytely) 236-22.74-6.7 4 -5.86 gram solution Take 4L by mouth [...] the office 2 tablet 08/21/19 25 Active cloNIDine (CATAPRES) 0.2 [...] breakfast. 30 tablet 1 08/22/19 25 Active spironolacton e (ALDACTONE) 25 mg tablet Take by mouth. Ac tive magnesium oxide (MAG-OX) 400 mg (241.3 elemental magnesium) tablet Take 1 tablet (400 mg total) by mouth at bedtime. 90 tablet 3 09/06/19 25 Active hydrOXYzine HCL (ATARAX) 10 mg tablet Take 1 tablet (10 mg total) by mouth 3 (three) times a day. 90 tablet 3 09/10/19 25 Active hydroCHLOROth iazide 12.5 mg tablet TAKE 1 TABLET (12.5 MG TOTAL) BY MOUTH 1 (ONE) TIME EACH DAY. 30 tablet 11/01/19 25 026 Active cyclobenzapri ne (FLEXERIL) 5 mg tablet TAKE 1 TABLET (5 MG TOTAL) BY MOUTH AT BEDTIME NEEDED FOR MUSCLE SPASMS. 30 tablet 11/01/19 25 Active FLUoxetine (PROzac) 20 mg capsule Take 2 capsules (40 mg total) by mouth 1 (one) time each day. 180 capsule 2 11/04/19 25 Active levothyroxine (SYNTHROID, LEVOTHROID) 25 mcg tablet TAKE 1 & 1/2 TABLETS BY MOUTH EVERY DAY 45 tablet 11/12/19 25 Active butalbital-ac etaminophen-c affeine (FIORICET, ESGIC) 50-325-40 mg per tablet TAKE 1 TABLET BY MOUTH EVERY 6 HOURS NEEDED FOR PAIN 12 tablet 11/21/19 25 Active polyethylene glycol (Golytely) 236-22.74-6.7 4 -5.86 gram solution Take 4L by mouth once for one dose. May substitue any PEG. Starting at 2PM the day before your procedure drink 1 8oz glasses at your own pace until you complete half of the gallon. Finish 2nd half of the gallon at 8PM. 4000 mL 11/23/19 25 Active bisacodyL (DULCOLAX) 5 mg EC tablet Take 2 tablets by mouth right before beginning bowel prep. See instructions provided by the office 2 tablet 11/23/19 25 Active FLUoxetine (PROzac) 20 mg capsule Take 1 capsule (20 mg total) by mouth 1 (one) time each day. 90 capsule 2 05/30/19 25 025 Discontinued(R mitesh) hydroCHLOROth iazide 12.5 mg tablet TAKE 1 TABLET (12.5 MG TOTAL) BY MOUTH 1 (ONE) TIME EACH DAY. 30 tablet 07/31/19 25 025 Discontinued cyclobenzapri ne (FLEXERIL) 5 mg tablet TAKE 1 TABLET (5 MG TOTAL) BY MOUTH AT BEDTIME NEEDED FOR MUSCLE SPASMS. 30 tablet 09/12/19 25 025 Discontinued levothyroxine (SYNTHROID, LEVOTHROID) 25 mcg tablet TAKE 1 & 1/2 TABLETS BY MOUTH EVERY DAY 45 tablet 09/21/19 25 025 Discontinued butalbital-ac etaminophen-c affeine (FIORICET, ESGIC) 50-325-40 mg per tablet TAKE 1 TABLET BY MOUTH EVERY 6 HOURS NEEDED FOR PAIN 12 tablet 10/17/19 25 025 Discontinued Active Problems Problem Noted [...] obstructive pu lmonary disease) with chronic bronchitis ([facility]/HCC V24, [facility]/HCC V28) 12/21/2018 Hepatic encephalopathy ([facility]/HCC V24, [facility]/HCC V28 ) 12/20/2018 Chronic cholecystitis with calculus [...] Alcoholic pancreatitis 12/23/2014 Portal hypertension (CMS/HCC V24, [facility]/HCC V28) 0 12/23/2014 Acid reflux 07/29/2013 Anxiety disorder 07/29/2013 Overview (02/27/2024): Last Assessment & Plan: I encouraged her to call PCP office and explain she is on waiting list for provider and needs meds in meantime. She contracted for safety. Urinary incontinence, urge 07/29/2013 Encounters Date Type Department Care Team Description 11/25/2024 2:00 PM EDT Hospital Encounter [facility] Endoscopy [address] [place] [phone] Yaron Belle MD Slanda, Summer, CRNA Freeman, Katharine O, MD 11/01/2024 Telephone Internal Medicine [address] [phone] Betty Burnett MD 10/25/2024 Telephone Internal Medicine [address] [phone] Betty Burnett MD 09/06/2024 Telephone Internal Medicine [address] [phone] Osbaldo Hayes [place] 09/05/2024 12:45 PM EDT Office Visit Internal Medicine [address] [phone] Betty Burnett MD Primary hypertension (Primary Dx); Hypothyroidism due to acquired atrophy of thyroid; COPD (chronic obstructive pulmonary disease) with chronic bronchitis (CMS/HCC V24, CMS/HCC V28); Alcoholic cirrhosis of liver with ascites (CMS/HCC V24, CMS/HCC V28) 09/05/2024 Telephone Internal Medicine [facility] [address] [phone] Betty Burnett MD 09/04/2024 Telephone Internal Medicine [address] [phone] Osbaldo Hayes [place] 09/02/2024 Telephone Gastroenterology [address] [phone] Yaron Belle MD from Last 3 Months Immunizations Name [...] COMMENT: Negative UPPER GASTROINTESTINAL ENDOSCOPY 04/30/2015 PROCEDURE: IN UPPER GI ENDOSCOPY PERFORMED; COMMENT: [facility]; small varices, minimal chemical gastritis, no H. pylori. COLONOSCOPY 05/26/2017 PROCEDURE: HISTORICAL COLONOSCOPY; COMMENT: Barbra@[facility]; 8 mm serrated adenoma transverse colon. Diverticulosis. UPPER GASTROINTESTINAL ENDOSCOPY 2018 PROCEDURE: IN UPPER GI ENDOSCOPY PERFORMED; COMMENT: erosive gastritis, [...] 1A. Chronic Hepatitis C. Tx Started 08/28/15 Serg Juan for 12 weeks. Completed 2 months [...] 0.8 54 Started: 1970 Smokeless Tobacco: Never Tobacco Cessation:Ready [...] Sign Reading Time Taken Comments Blood Pressure 118/88 09/05/2024 12:55 PM EDT Pulse 94 09/05/2024 12:55 PM EDT Temperature 37.1 C (98.7 F) 09/05/2024 12:55 PM EDT Respiratory Rate - - Oxygen Saturation 95% 09/05/2024 12:55 PM EDT Inhaled Oxygen Concentration - - Weight 79.8 kg (176 lb) 09/05/2024 12:55 PM EDT Height 163.8 cm (5' 4.5 ) 09/05/2024 12:55 PM ED T Body Mass Index 29.74 09/05/2024 12:55 PM EDT Plan of Treatment Upcoming Encounters Date Type Department Care Team (Late st Contact Info) Description 01/09/2025 1:15 PM EDT Office Visit Internal Medicine - [address] [place] [address] Betty Burnett MD [address] [place] [phone] Health Maintenance Due Date Last Done Comments Hepatitis A Vaccines (1 of 2 - Risk 2-dose series) 1973 Zoster Vaccines (1 of 2) 2004 RSV Immunization Adult Patients (1 - Risk 60-74 years 1-dose series) 2014 Pneumococcal Vaccine: 50+ Years (2 of 2 - PCV) 09/09/2016 09/10/2015, 05/04/2008 Osteoporosis Screening (Bone Density Screening) 03/12/2022 Social Influencers of Health Screening 03/12/2022 Colorectal Cancer Screening: Colonoscopy 05/26/2022 05/26/2017 Lung Cancer Screening (Low Dose CT) 04/10/2024 04/10/2023, 06/08/2020 COVID-19 Vaccine ( season) 2024 01/17/2024, 09/15/2022, 07/22/2021, Additional history exists Influenza Vaccine (#1) 2024 , 01/23/2023, 03/10/2022, Additional history exists Falls Risk Assessment 04/24/2025 04/24/2024, 024 Medicare Annual Wellness Visit 04/24/2025 04/24/2024 Hypertension/CHF/CAD Annual BMP Blood Test 07/23/2025 07/23/2024, 05/01/2024, 10/23/2023, Additional history exists Breast Cancer Screening 06/10/2026 06/10/2024, 03/13 Cholesterol Screening (Lipid Panel) 10/26/2026 10/26/2021 DTaP,Tdap,and Td Vaccines (4 - Td or Tdap) 01/13/2031 01/13/2021, 07/29/2013, 10/02/2003 Hepatitis C Screening Completed 04/19/2023 Depression Screening Completed 04/24/2024, 05/18/19 HIB Vaccines Aged Out No longer eligi ble based on patient's age to complete this topic HPV Vaccines Aged Out No longer eligi ble based on patient's age to complete this topic Hepatitis B Vaccines Aged Out No long er eligible based on patient's age to complete [...] Procedure Name Priority Date/Time Associated Diagnosis Comments MAGNESIUM Routine 09/05/2024 1:18 PM EDT Primary hypertension Hypothyroidism due to acquired atrophy of thyroid THYROID STIMULATING HORMONE WITH REFLEX TO FREE T4 AND FREE T3 Routine 09/05/2024 1:18 PM EDT Primary hypertension Hypothyroidism due to acquired atrophy of thyroid HEPATIC FUNCTION PANEL Routine 09/05/2024 1:18 PM EDT Primary hypertension Hypothyroidism due to acquired atrophy of thyroid CREATININE, SERUM Routine 07/23/2024 12: 42 PM EDT Essential hypertension, malignant MG MAMMO DIGITAL SCREENING W SP BILAT Routine 06/10/2024 11:23 AM EDT Breast cancer screening by mammogram FALLS RISK ASSESSMENT Routine 10/23/2023 DEPRESSION SCREENING Routine 05/18/2023 HEPATITIS C SCREENING Routine 04/19/2023 CT LUNG SCREENING LOW DOSE Routine 04/10/2023 9:19 AM EST Encounter for screening for malignant neoplasm of respiratory organs LIPID PANEL Routine 10/26/2021 HM COLONOSCOPY Routine 05/26/2017 from Last 3 Months or Most Recently Relevant to Health Maintenance Results * Thyroid stimulating hormone with reflex to free t4 and free t3 (09/05/2024 1:18 PM EDT) TSH 0.45 0.40 - 4.00 mcIU/mL LAB CHEMISTRY METHOD 09/05/2024 5:43 PM EDT [facility] Blood Venous blood specimen / Unknown Venipuncture / Unknown 09/05/2024 1:18 PM EDT 09/05/2024 1:18 PM EDT us Betty Burnett MD LAB BLOOD ORDERABLES Final Res ult Performing Organization Address [facility]/ZIP Co de Phone Number [facility] [address] [place] [address], [place] [phone] * (ABNORMAL) Magnesium (09/05/2024 1:18 PM EDT) Magnesium 1.7(L) 1.9 - 2.6 mg/dL LAB CHEMISTRY METHOD 09/05/2024 4:39 PM EDT [facility] Blood Venous blood specimen / Unknown Venipuncture / Unknown 09/05/2024 1:18 PM EDT 09/05/2024 1:18 PM EDT us Betty Burnett MD LAB BLOOD ORDERABLES Final Res ult Performing Organization Address City/[facility]/ZIP Co de Phone Number [facility] [address] [place] [address], [place] [phone] * (ABNORMAL) Hepatic function panel (09/05/2024 1:18 PM EDT) Total Protein 7.3 6.0 - 8.0 g/dL LAB CHEMISTRY METHOD 09/05/2024 4:41 PM EDT [facility] Albumin 3.5 3.2 - 5.0 g/dL LAB CHEMISTRY METHOD 09/05/2024 4:41 PM EDT [facility] Total Bilirubin 0.8 0.0 - 1.4 mg/dL LAB CHEMISTRY METHOD 09/05/2024 4:41 PM EDT [facility] Bilirubin, Direct 0.4(H) 0.0 - 0.3 mg/dL LAB CHEMISTRY METHOD 09/05/2024 4:[facility] Bilirubin, Indirect 0.4 0.0 - 1.1 mg/dL LAB CHEMISTRY METHOD 09/05/2024 4:41 PM [facility] ALT (SGPT) 59 10 - 60 unit/L LAB CHEMISTRY METHOD 09/05/2024 4:41 PM [facility] AST (SGOT) 68(H) 10 - 42 unit/L LAB CHEMISTRY METHOD 09/05/2024 4:41 PM EDT [facility] Alkaline Phosphatase 97 42 - 121 unit/L LAB CHEMISTRY METHOD 09/05/2024 4:41 PM [facility] Blood Venous blood specimen / Unknown Venipuncture / Unknown 09/05/2024 1:18 PM EDT 09/05/2024 1:18 PM EDT us Betty Burnett MD LAB BLOOD ORDERABLES Final Res ult [facility] [address] [place] [address], * Creatinine (07/23/2024 12:42 PM EDT) Pathologist [facility] Creatinine 0.87 0.50 - 1.10 mg/dL LAB CHEMISTRY METHOD 07/23/2024 2:03 PM EDT [facility] eGFR 72 >=60 mL/min/1. 73m2 LAB CHEMISTRY METHOD 07/23/2024 2:03 PM EDT [facility] Comment:Calculation based on the Chronic Kidney Disease Epidemiology Collaboration (CKD-EPI) equation refit without adjustment for race. Blood Venous blood specimen / Unknown Venipuncture / Unknown 07/23/2024 12:42 PM EDT 07/23/2024 12:53 PM EDT us Indra Robertson MD LAB BLOOD ORDERABLES Final Resul t [facility] [address] [place] [address], [place] [phone] * MG Mammo Digital Screening w Sp bilat (06/10/2024 11:23 AM EDT) Anatomical Region Laterality Modality Breast Bilateral Mammography 06/10/2024 1:28 PM EDT Impressions 06/10/2024 1:35 PM EDT No mammographic evidence of malignancy. No suspicious interval change. A negative mammogram in the presence of a clinically suspicious palpable abnormality does not preclude the possibility of malignancy or alter the indications for biopsy. ASSESSMENT: BI-RADS 1: NEGATIVE RECOMMENDATION(S): 1: Routine screening mammogram BILATERAL in 1 year. [facility] location[facility] [address] [place], [address] -------- FINAL REPORT -------- Dictated By: Abhay Rivas Dictated Date: 06/10/2024 13:28 ET Assigned Physician: Abhay Rivas Reviewed and Electronically Signed By: Abhay Rivas Signed Date: 06/10/2024 13:35 ET Workstation ID: [id number] Transcribed By: Self Edit Transcribed Date: 06/10/2024 13:28 ET Narrative 06/10/2024 1:35 PM EDT EXAM: SCREENING MAMMOGRAPHY, BILATERAL HISTORY: SCREENING. No additional history. COMPARISON: 03/13/2019, 12/14/2012 TECHNIQUE: Synthesized CC and MLO projections of each breast. Tomosynthesis of each breast in the CC and MLO projections. ADDITIONAL IMAGING: None Computer-aided detection was employed with the [employer] Pro[employer] AI 3-D. TISSUE DENSITY: There are scattered areas of fibroglandular density. (BI-RADS category B) FINDINGS: RIGHT BREAST: No suspicious mass. No suspicious calcification. No distortion. No additional suspicious right breast findings LEFT BREAST: No suspicious mass. No suspicious calcification. No distortion. No additional suspicious left breast findings Procedure Note Abhay Rivas MD - 06/10/2024 EXAM: SCREENING MAMMOGRAPHY, BILATERAL HISTORY: SCREENING. No additional history. COMPARISON: 03/13/2019, 12/14/2012 TECHNIQUE: Synthesized CC and MLO projections of each breast.Tomosynthesis of each breast in the CC and MLO projections. ADDITIONAL IMAGING: None Computer-aided detection was employed with the [employer] ProFound AI 3-D. TISSUE DENSITY: There are [...] year. [facility]ammography location: [facility] [address], [address] -------- FINAL REPORT -------- Dictated By: Abhay Rivas Dictated Date: 06/10/2024 13:28 ET Assigned Physician: Abhay Rivas Reviewed and Electronically Signed By: Abhay Rivas Signed Date: 06/10/2024 13:35 ET Workstation ID: [id number] Transcribed By: Self Edit Transcribed Date: 06/10/2024 [...] AM EST Narrative 04/10/2023 9:19 AM EST [facility] Diagnostic Imaging Department [address] [place] [address] Patient: VALERIE LAGUNAS Olya /Age/Sex: 1955 - 67 - F Unit#: [id number] Location/Status: SPDICATLS/REG CLI Mnemonic/Ordering Site: [facility] Ordering Physician: CARMINE OSPINA MD CT Lung Screening Low Dose - 03/24/23 - [id number] Report Status:Signed Indication: Greater than 20 total pack-year smoking history, asymptomatic current smoker Technique: Low-dose CT scan of the chest obtained as a lung cancer screening study. Multiplanar reformatted images were obtained. Dose reduction technique: ASIR (Adaptive statistical iterative reconstruction) and/or AEC (automated exposure control) COMPARISON: 12/23 and 06/21. FINDINGS: Lack of intravenous contrast limits evaluation of the jesús, vascular structures and visualized abdominal viscera. Lungs/airways: Trachea and central airways are patent. Mild bronchial wall thickening. Emphysematous changes. Few scattered sub-5 mm pulmonary nodules; similar to prior. Few scattered sub-5 mm pulmonary nodules, similar to prior. Base of the neck, mediastinum, heart, chest wall, vessels: The assessment of hilar lymphadenopathy is difficult without the use of IV contrast. No enlarged mediastinal lymphadenopathy. Ascending thoracic aorta is dilated measuring 4.1 cm at the level of the pulmonary trunk (previously 3.9 cm). Thoracic aortic and coronary artery calcifications. Upper abdomen: This study was performed without contrast and with lower than standard dose. These factors reduce the sensitivity for detection of small lesions in the upper abdomen. Nodularity of the liver in keeping with cirrhosis. Status post cholecystectomy. Colonic diverticulosis. Bones/soft tissues: As shaped thoracic scoliosis. IMPRESSION: No suspicious pulmonary nodules Lung RADS 2: Benign Appearance or Behavior - Continue annual screening with LDCT in 12 months. Dictating Physician: EIDSON BRITTON MD Electronically Signed by: EDISON BRITTON MD Dic Date/Time: 04/10/23613 Sign date/Time: 04/10/23918 Procedure Note Edison Britton MD - 11/20/2023 [facility] Diagnostic Imaging Department [address] [place], [place] [id number] Patient: VALERIE LAGUNAS Olya LopezB./Age/Sex: 1955 - 67 - F Unit#: [id number] Location/Status: SPDICATLS/REG CLI Mnemonic/Ordering Site: [facility] Ordering Physician: CARMINE OSPINA MD CT Lung [...] Documents on File Type Date Recorded Patient Manager Of Marketing Expl anation Health Care Decision (hx) 03/30/2023 [...] (hx) 07/19/2021 AD HERRERA DIRECTIVE Care Teams Tax Staff Accountant Relationship Specialty Start Date End Date Betty Burnett MD [address] [place] [phone] PCP - General Internal Medicine 03/25/24
--- OUTSIDE RECORDS SUMMARY | 2024-11-26 12:19 | XMS_ITS | Encounter Summary ---
Author Organization [facility] Address [address] [place] [address] Care Team Providers Care Web Analyst Name Role Phone Betty Burnett MD Primary Care Provider [phone] Encounter Details Date Type Department Care Team (Late Contact Info) Description 10/25/2024 Telephone Internal Medicine - [place] 175 [facility] [address] [place] [address] Betty Burnett MD [address] [place] [address] Social History Tobacco Use Types Packs/Day Years [...] Encounters Date Type Department Care Team (Late Contact Info) Description 01/09/2025 1:15 PM EDT Office Visit Internal Medicine [facility] 175 [facility] [address] [place] [address] Betty Burnett MD [address] [place] [address] documented as of this encounter Visit Diagnoses Not on filedocumented in this encounter Additional Health Concerns Assessment Noted Time PHQ-9 Depression Total Score: 2 04/24/19 25 1:10 PM EST A fall risk assessment has been complete d for the patient 04/24/2024 1:06 PM EST documented as of this encounter Care Teams Web Analyst Relationship Specialty Start Date End Date Betty Burnett MD [address] [phone] PCP - General Internal Medicine 03/25/24 documented as of this encounter
--- OUTSIDE RECORDS SUMMARY | 2024-11-26 12:19 | XMS_ITS | Encounter Summary ---
Author Organization [facility] Address [address] [place] [address] Care Team Providers Care Production Grader Name Role Phone Betty Burnett MD Primary Care Provider [phone] Reason for Visit * Reason Onset Date Comments Medication Problem 11/01/2024 Encounter Details Date Type Department Care Team (Late st Contact Info) Description 11/01/2024 Telephone Internal Medicine - [place] 175 [facility] [address] [place] [address] Betty Burnett MD [address] [place] [address] Social History Tobacco Use Types Packs/Day Years [...] PM EST documented as of this encounter Ordered Prescriptions Prescription Sig Dispense Quantity Refills Last Filled Start Date End Date FLUoxetine (PROzac) 20 mg capsule Take 2 capsules (40 mg total) by mouth 1 (one) time each day. 180 capsule 2 11/03/2024 documented in this encounter Progress Notes * Juan Villalobos [place] - 11/04/2024 10:20 AM EDT Left patient detailed vmail regarding msg below. * Betty Burnett MD - 11/03/2024 10:21 PM EDT Ask her to take 2 tabs 3 is too much * Mary Jo Bonilla - 11/01/2024 1:41 PM EDT Per 06/26/24 notes pt was taking fluoxetine 20mg 3x/day But recent rx has her taking it only 1x/day Pt is asking for new rx for fluoxetine 3x/day as that has been working for her, please advise? Ty documented in this encounter Plan of Treatment Upcoming Encounters Date Type Department Care Team ([facility] st Contact Info) Description 01/09/2025 1:15 PM EDT Office Visit Internal Medicine - [place] 175 [facility] [address] [place] [address] Betty Burnett MD [address] [place] [phone] documented as of this encounter Visit Diagnoses Not on filedocumented in this encounter Discontinued Medications Medication Sig Discontinue Reason Start Date End Da te FLUoxetine (PROzac) 20 mg capsule Take 1 capsule (20 mg total) by mouth 1 (one) time each day. Reorder 05/30/2024 11/03/2024 documented as of this encounter Additional Health Concerns Assessment Noted Time PHQ-9 Depression Total Score: 2 04/24/19 1:10 PM EST A fall risk assessment has been complete d for the patient 04/24/2024 1:06 PM EST documented as of this encounter Care Teams Production Grader Relationship Specialty Start Date End Date Betty Burnett MD 175 [facility] [address] [place] [address] PCP - General Internal Medicine 03/25/24 documented as of this encounter
--- OUTSIDE RECORDS SUMMARY | 2024-11-26 12:19 | XMS_ITS | Clinical Summary ---
Author Organization [facility] Address [address] [place] [address] Phone Care Team Providers Care Welding Teacher Name Role Phone Betty Burnett MD Primary Care Provider Social History Tobacco Use Types Packs/Day Years Used Date Smoking Tobacco: Never Assessed Comments Unknown Sex and Gender Information Value Date Recorded Sex Assigned at Female 04/20/2023 3:53 PM EST Legal Sex Female 3:51 PM EST Gender Identity Female 04/20/2023 3:53 PM EST Sexual Orientation Straight 04/20/2023 3: 53 PM EST Plan of Treatment Not on file Medical Devices Not on file Insurance MEDICARE PART A & B [facility] MEDICARE REPLACEMENT MEDICARE PART A & B [facility] MEDICARE REPLACEMENT MEDICARE PART A & B [facility] [employer] MEDICARE REPLACEMENT MEDICARE PART A & B [facility] MEDICARE REPLACEMENT MEDICARE PART A & B [place] MEDICARE REPLACEMENT MEDICARE PART A & B [facility] MEDICARE REPLACEMENT Care Teams Welding Teacher Relationship Specialty Start Date End Date Betty Burnett MD 175 [facility] [address] [place] [address] PCP - General Internal Medicine 04/20/23 Additional Source Comments The information contained in this document represents components of the legal health record. It is not the complete legal health record.[facility]
== END 2024-11-26 11:56 | disposition home or self-care (01) ==
LOC: HO.HKAS 11:21
PROVIDERS: PCP Internal Medicine; Visit Provider Internal Medicine Nephrology
DX: I10 Essential (primary) hypertension (principal)
CPT/HCPCS: 99214

== ENCOUNTER 2024-11-26 11:21 | Outpatient (REF) | payer MEDICARE, SELFPAY ==
[2024-11-26 18:44] LABS: Anion Gap 14 (12-20); Blood Urea Nitrogen 33 mg/dL (9-16); Calcium 10.0 mg/dL (8.4-10.2); Carbon Dioxide 25 mmol/L (22-29); Chloride 107 mmol/L (96-108); Estimated Glomerular Filt Rate 55; Potassium 4.3 mmol/L (3.3-5.1); Sodium 142 mmol/L (135-145)
== END 2024-11-26 11:22 | disposition home or self-care (01) ==
LOC: HO.HKASLDS 11:21
PROVIDERS: PCP Internal Medicine; Visit Provider Internal Medicine Nephrology
DX: I10 Essential (primary) hypertension (principal); R60.9 Edema, unspecified; F17.200 Nicotine dependence, unspecified, uncomplicated; Z79.899 Other long term (current) drug therapy
CPT/HCPCS: 36415; 80051; 82310; 82565; 84520; 99212